=== PATIENT | female | born 1935 | race Caucasian/White ===

== ENCOUNTER 2016-08-11 09:33 | Emergency (ER) | payer MEDICARE, OTHER ==
[2016-08-11] MEDS ORDERED: SODIUM CHLORIDE 0.9% 1,000 ML IV ONE ×2 (09:56)
== END 2016-08-11 14:03 | disposition home or self-care (01) ==
DX: E86.0 Dehydration (principal); N30.00 Acute cystitis without hematuria; K57.30 Diverticulosis of large intestine without perforation or abscess without bleeding; R19.7 Diarrhea, unspecified; K43.9 Ventral hernia without obstruction or gangrene; I25.10 Atherosclerotic heart disease of native coronary artery without angina pectoris; E03.9 Hypothyroidism, unspecified; Z85.72 Personal history of non-Hodgkin lymphomas; Z79.01 Long term (current) use of anticoagulants

== ENCOUNTER 2018-03-24 08:57 | Outpatient (CLI) | payer MEDICARE, OTHER ==
[2018-03-24 09:16] LABS: INR 1.7 (0.8-1.2); PT - PROTHROMBIN TIME 18.3 secs (9.9-12.6)
== END 2018-03-24 08:58 | disposition home or self-care (01) ==
LOC: LAB 08:57
PROVIDERS: ATTEND Pharmacist
DX: I48.91 Unspecified atrial fibrillation (principal); D68.51 Activated protein C resistance
CPT/HCPCS: 36415; 85610

== ENCOUNTER 2018-03-31 08:52 | Outpatient (CLI) | payer MEDICARE, OTHER ==
[2018-03-31 09:20] LABS: INR 3.7 (0.8-1.2); PT - PROTHROMBIN TIME 39.6 secs (9.9-12.6)
== END 2018-03-31 08:53 | disposition home or self-care (01) ==
LOC: LAB 08:52
PROVIDERS: ATTEND Pharmacist
DX: I48.91 Unspecified atrial fibrillation (principal); D68.51 Activated protein C resistance
CPT/HCPCS: 36415; 85610

== ENCOUNTER 2018-04-07 08:50 | Outpatient (CLI) | payer MEDICARE, OTHER ==
[2018-04-07 10:30] LABS: INR 4.4 (0.8-1.2); PT - PROTHROMBIN TIME 47.3 secs (9.9-12.6)
== END 2018-04-07 08:51 | disposition home or self-care (01) ==
LOC: LAB 08:50
PROVIDERS: ATTEND Pharmacist
DX: I48.91 Unspecified atrial fibrillation (principal); D68.51 Activated protein C resistance
CPT/HCPCS: 36415; 85610

== ENCOUNTER 2018-04-14 08:10 | Outpatient (CLI) | payer MEDICARE, OTHER ==
[2018-04-14 08:38] LABS: INR 3.7 (0.8-1.2)
== END 2018-04-14 08:11 | disposition home or self-care (01) ==
LOC: LAB 08:10
PROVIDERS: ATTEND Pharmacist
DX: I48.91 Unspecified atrial fibrillation (principal); D68.51 Activated protein C resistance
CPT/HCPCS: 36415; 85610

== ENCOUNTER 2018-04-25 08:44 | Outpatient (CLI) | payer MEDICARE, OTHER ==
[2018-04-25 09:37] LABS: INR 2.5 (0.8-1.2); PT - PROTHROMBIN TIME 27.2 secs (9.9-12.6)
== END 2018-04-25 08:45 | disposition home or self-care (01) ==
LOC: LAB 08:44
PROVIDERS: ATTEND Pharmacist
DX: I48.91 Unspecified atrial fibrillation (principal); D68.51 Activated protein C resistance
CPT/HCPCS: 36415; 85610

== ENCOUNTER 2018-05-18 08:46 | Outpatient (CLI) | payer MEDICARE, OTHER ==
[2018-05-18 09:26] LABS: INR 1.6 (0.8-1.2); PT - PROTHROMBIN TIME 17.4 secs (9.9-12.6)
== END 2018-05-18 08:47 | disposition home or self-care (01) ==
LOC: LAB 08:46
PROVIDERS: ATTEND Pharmacist
DX: I48.91 Unspecified atrial fibrillation (principal); D68.51 Activated protein C resistance
CPT/HCPCS: 36415; 85610

== ENCOUNTER 2018-05-25 08:45 | Outpatient (CLI) | payer MEDICARE, OTHER ==
[2018-05-25 09:11] LABS: PT - PROTHROMBIN TIME 22.6 secs (9.9-12.6)
== END 2018-05-25 08:46 | disposition home or self-care (01) ==
LOC: LAB 08:45
PROVIDERS: ATTEND Pharmacist
DX: I48.91 Unspecified atrial fibrillation (principal); D68.51 Activated protein C resistance
CPT/HCPCS: 36415; 85610

== ENCOUNTER 2018-06-08 08:12 | Outpatient (CLI) | payer MEDICARE, OTHER ==
[2018-06-08 09:09] LABS: INR 2.7 (0.8-1.2); PT - PROTHROMBIN TIME 30.4 secs (9.9-12.6)
== END 2018-06-08 08:13 | disposition home or self-care (01) ==
LOC: LAB 08:12
PROVIDERS: ATTEND Pharmacist
DX: I48.91 Unspecified atrial fibrillation (principal); D68.51 Activated protein C resistance
CPT/HCPCS: 36415; 85610

== ENCOUNTER 2018-07-11 09:51 | Outpatient (CLI) | payer MEDICARE, OTHER ==
[2018-07-11 10:49] LABS: PT - PROTHROMBIN TIME 22.3 secs (9.9-12.6)
== END 2018-07-11 09:52 | disposition home or self-care (01) ==
LOC: LAB 09:51
PROVIDERS: ATTEND Pharmacist
DX: I48.91 Unspecified atrial fibrillation (principal); D68.51 Activated protein C resistance
CPT/HCPCS: 36415; 85610

== ENCOUNTER 2018-08-10 09:00 | Outpatient (CLI) | payer MEDICARE, OTHER ==
[2018-08-10 09:24] LABS: INR 2.2 (0.8-1.2); PT - PROTHROMBIN TIME 23.9 secs (9.9-12.6)
== END 2018-08-10 09:01 | disposition home or self-care (01) ==
LOC: LAB 09:00
PROVIDERS: ATTEND Pharmacist
DX: I48.91 Unspecified atrial fibrillation (principal); D68.51 Activated protein C resistance
CPT/HCPCS: 36415; 85610

== ENCOUNTER 2018-09-19 08:06 | Outpatient (CLI) | payer MEDICARE, OTHER ==
[2018-09-19 08:28] LABS: INR 1.8 (0.8-1.2); PT - PROTHROMBIN TIME 20.1 secs (9.9-12.6)
== END 2018-09-19 08:07 | disposition home or self-care (01) ==
LOC: LAB 08:06
PROVIDERS: ATTEND Pharmacist
DX: I48.91 Unspecified atrial fibrillation (principal); D68.51 Activated protein C resistance
CPT/HCPCS: 36415; 85610

== ENCOUNTER 2018-10-17 08:51 | Outpatient (CLI) | payer MEDICARE, OTHER ==
[2018-10-17 09:22] LABS: BASOPHILS # (AUTO) 0.1 10^3/uL (0.0-0.1); BASOPHILS % (AUTO) 1.1 %; EOSINOPHILS # (AUTO) 0.7 10^3/uL (0.0-0.7); EOSINOPHILS % (AUTO) 8.4 %; HGB - HEMOGLOBIN 11.9 g/dL (12.0-16.0); MEAN CORPUSCULAR HEMOGLOBIN 28.7 pg (27.0-31.0); MEAN CORPUSCULAR HGB CONC 32.1 g/dL (32.0-36.0); MEAN CORPUSCULAR VOLUME 89.3 fL (81.0-99.0); MEAN PLATELET VOLUME 8.2 fL (7.9-10.8); MONOCYTES % (AUTO) 11.9 %; NEUTROPHILS # (AUTO) 3.4 10^3/uL (1.5-6.6); NEUTROPHILS % (AUTO) 41.6 %; PLT - PLATELET COUNT 236 10^3/uL (130-450); RED BLOOD COUNT 4.15 10^6/uL (4.20-5.40); RED CELL DISTRIBUTION WIDTH 15.6 % (12.0-15.0); WHITE BLOOD COUNT 8.1 x10^3/uL (4.8-10.8)
[2018-10-17 09:40] LABS: ALBUMIN/GLOBULIN RATIO 1.1 (1.0-2.2); ALKALINE PHOSPHATASE 43 IU/L (42-121); ALT ALANINE AMINOTRANSFERASE 15 IU/L (10-60); AST ASPARTATE AMINOTRANSFERASE 24 IU/L (10-42); BILIRUBIN,TOTAL 0.8 mg/dL (0.2-1.0); BUN - BLOOD UREA NITROGEN 18 mg/dL (6-20); CALCIUM 8.9 mg/dL (8.5-10.3); CARBON DIOXIDE - CO2 26 mmol/L (21-32); CHLORIDE 103 mmol/L (101-111); CHOL/HDL RATIO 2.4 (<4.4); CHOLESTEROL 160 mg/dL; CREATININE 0.7 mg/dL (0.4-1.0); GFR - MDRD 80 (>89); GLUCOSE 101 mg/dL (70-100); HDL CHOLESTEROL 66 mg/dL; LDL CHOLESTEROL,CALCULATED 71 mg/dL; LDL/HDL RATIO 1.1 (<4.4); SODIUM 136 mmol/L (135-145); TOTAL PROTEIN 7.6 g/dL (6.7-8.2); VLDL CHOLESTEROL 23 mg/dL
[2018-10-17 09:44] LABS: INR 2.2 (0.8-1.2); PT - PROTHROMBIN TIME 24.4 secs (9.9-12.6)
[2018-10-17 10:08] LABS: THYROID STIMULATING HORMONE 2.93 uIU/mL (0.34-5.60)
== END 2018-10-17 08:52 | disposition home or self-care (01) ==
LOC: LAB 08:51
PROVIDERS: ATTEND Pharmacist
DX: I48.91 Unspecified atrial fibrillation (principal); E78.5 Hyperlipidemia, unspecified; D68.51 Activated protein C resistance; I42.9 Cardiomyopathy, unspecified; E53.8 Deficiency of other specified B group vitamins; E03.9 Hypothyroidism, unspecified; Z79.01 Long term (current) use of anticoagulants
CPT/HCPCS: 36415; 80053; 80061; 82607; 83721; 84443; 85025; 85610

== ENCOUNTER 2018-11-11 08:00 | Outpatient (CLI) | payer MEDICARE, OTHER | END 2018-11-11 23:59 | disposition home or self-care (01) | LOC: LAB.R 08:00 | PROVIDERS: ATTEND Nurse Practitioner | DX: R30.0 Dysuria (principal) | CPT/HCPCS: 87077; 87086; 87181 ==

== ENCOUNTER 2018-11-21 08:41 | Outpatient (CLI) | payer MEDICARE, OTHER ==
[2018-11-21 09:04] LABS: INR 3.3 (0.8-1.2); PT - PROTHROMBIN TIME 36.9 secs (9.9-12.6)
== END 2018-11-21 08:42 | disposition home or self-care (01) ==
LOC: LAB 08:41
PROVIDERS: ATTEND Pharmacist
DX: I48.91 Unspecified atrial fibrillation (principal); D68.51 Activated protein C resistance
CPT/HCPCS: 36415; 85610

== ENCOUNTER 2018-12-13 10:44 | Outpatient (CLI) | payer MEDICARE, OTHER ==
[2018-12-13 09:21] LABS: INR 2.2 (0.8-1.2); PT - PROTHROMBIN TIME 24.9 secs (9.9-12.6)
== END 2018-12-13 10:45 | disposition home or self-care (01) ==
LOC: LAB 10:44
PROVIDERS: ATTEND Pharmacist
DX: I48.91 Unspecified atrial fibrillation (principal); D68.51 Activated protein C resistance
CPT/HCPCS: 36415; 85610

== ENCOUNTER 2019-01-09 08:00 | Outpatient (CLI) | payer MEDICARE, OTHER ==
[2019-01-09 09:32] LABS: INR 1.5 (0.8-1.2); PT - PROTHROMBIN TIME 16.4 secs (9.9-12.6)
== END 2019-01-09 23:59 | disposition home or self-care (01) ==
LOC: LAB 08:00
PROVIDERS: ATTEND Pharmacist
DX: I48.91 Unspecified atrial fibrillation (principal); D68.51 Activated protein C resistance
CPT/HCPCS: 36415; 85610

== ENCOUNTER 2019-01-27 08:52 | Outpatient (CLI) | payer MEDICARE, OTHER ==
[2019-01-27 09:34] LABS: INR 5.3 (0.8-1.2)
== END 2019-01-27 08:53 | disposition home or self-care (01) ==
LOC: LAB 08:52
PROVIDERS: ATTEND Pharmacist
DX: I48.91 Unspecified atrial fibrillation (principal); D68.51 Activated protein C resistance
CPT/HCPCS: 85610

== ENCOUNTER 2019-01-31 08:42 | Outpatient (CLI) | payer MEDICARE, OTHER ==
[2019-01-31 09:52] LABS: INR 2.7 (0.8-1.2); PT - PROTHROMBIN TIME 30.1 secs (9.9-12.6)
== END 2019-01-31 08:43 | disposition home or self-care (01) ==
LOC: LAB 08:42
PROVIDERS: ATTEND Pharmacist
DX: I48.91 Unspecified atrial fibrillation (principal); D68.51 Activated protein C resistance
CPT/HCPCS: 36415; 85610

== ENCOUNTER 2019-02-14 08:35 | Outpatient (CLI) | payer MEDICARE, OTHER ==
[2019-02-14 09:22] LABS: INR 3.1 (0.8-1.2); PT - PROTHROMBIN TIME 33.8 secs (9.9-12.6)
== END 2019-02-14 08:36 | disposition home or self-care (01) ==
LOC: LAB 08:35
PROVIDERS: ATTEND Pharmacist
DX: I48.91 Unspecified atrial fibrillation (principal); D68.51 Activated protein C resistance
CPT/HCPCS: 36415; 85610

== ENCOUNTER 2019-02-28 08:12 | Outpatient (CLI) | payer MEDICARE, OTHER ==
[2019-02-28 08:45] LABS: INR 2.6 (0.8-1.2); PT - PROTHROMBIN TIME 28.7 secs (9.9-12.6)
== END 2019-02-28 08:13 | disposition home or self-care (01) ==
LOC: LAB 08:12
PROVIDERS: ATTEND Pharmacist
DX: I48.91 Unspecified atrial fibrillation (principal); D68.51 Activated protein C resistance
CPT/HCPCS: 36415; 85610

== ENCOUNTER 2019-03-27 08:21 | Outpatient (CLI) | payer MEDICARE, OTHER ==
[2019-03-27 08:52] LABS: INR 2.8 (0.8-1.2); PT - PROTHROMBIN TIME 31.2 secs (9.9-12.6)
== END 2019-03-27 08:22 | disposition home or self-care (01) ==
LOC: LAB 08:21
PROVIDERS: ATTEND Pharmacist
DX: I48.91 Unspecified atrial fibrillation (principal); D68.51 Activated protein C resistance
CPT/HCPCS: 36415; 85610

== ENCOUNTER 2019-04-25 08:03 | Outpatient (CLI) | payer MEDICARE, OTHER ==
[2019-04-25 08:54] LABS: INR 2.4 (0.8-1.2); PT - PROTHROMBIN TIME 26.4 secs (9.9-12.6)
== END 2019-04-25 08:04 | disposition home or self-care (01) ==
LOC: LAB 08:03
PROVIDERS: ATTEND Pharmacist
DX: I48.91 Unspecified atrial fibrillation (principal); D68.51 Activated protein C resistance
CPT/HCPCS: 36415; 85610

== ENCOUNTER 2019-05-12 08:24 | Outpatient (CLI) | payer MEDICARE, OTHER ==
[2019-05-12 08:53] LABS: BASOPHILS # (AUTO) 0.1 10^3/uL (0.0-0.1); EOSINOPHILS # (AUTO) 0.8 10^3/uL (0.0-0.7); EOSINOPHILS % (AUTO) 11.4 %; HGB - HEMOGLOBIN 12.5 g/dL (12.0-16.0); LYMPHOCYTES # (AUTO) 2.3 10^3/uL (1.5-3.5); LYMPHOCYTES % (AUTO) 32.8 %; MEAN CORPUSCULAR HEMOGLOBIN 28.7 pg (27.0-31.0); MEAN CORPUSCULAR HGB CONC 30.4 g/dL (32.0-36.0); MEAN CORPUSCULAR VOLUME 94.3 fL (81.0-99.0); MEAN PLATELET VOLUME 10.4 fL (7.9-10.8); MONOCYTES # (AUTO) 0.8 10^3/uL (0.0-1.0); MONOCYTES % (AUTO) 12.1 %; NEUTROPHILS % (AUTO) 42.6 %; PLT - PLATELET COUNT 230 10^3/uL (130-450); RED BLOOD COUNT 4.36 10^6/uL (4.20-5.40); RED CELL DISTRIBUTION WIDTH 15.4 % (12.0-15.0)
[2019-05-12 09:12] LABS: ALBUMIN 4.2 g/dL (3.2-5.5); ALBUMIN/GLOBULIN RATIO 1.2 (1.0-2.2); ALKALINE PHOSPHATASE 42 IU/L (42-121); ALT ALANINE AMINOTRANSFERASE 15 IU/L (10-60); AST ASPARTATE AMINOTRANSFERASE 22 IU/L (10-42); BUN - BLOOD UREA NITROGEN 15 mg/dL (6-20); CALCIUM 9.5 mg/dL (8.5-10.3); CARBON DIOXIDE - CO2 28 mmol/L (21-32); CHLORIDE 103 mmol/L (101-111); CHOL/HDL RATIO 2.4 (<4.4); CHOLESTEROL 154 mg/dL; CREATININE 0.7 mg/dL (0.4-1.0); GFR - MDRD 80 (>89); GLUCOSE 110 mg/dL (70-100); HDL CHOLESTEROL 63 mg/dL; LDL CHOLESTEROL,CALCULATED 70 mg/dL; LDL/HDL RATIO 1.1 (<4.4); SODIUM 141 mmol/L (135-145); TOTAL PROTEIN 7.8 g/dL (6.7-8.2); VLDL CHOLESTEROL 21 mg/dL
== END 2019-05-12 08:25 | disposition home or self-care (01) ==
LOC: LAB 08:24
PROVIDERS: ATTEND Physician Assistant Medical
DX: I48.91 Unspecified atrial fibrillation (principal); E78.5 Hyperlipidemia, unspecified; E53.8 Deficiency of other specified B group vitamins; E03.9 Hypothyroidism, unspecified
CPT/HCPCS: 36415; 80053; 80061; 82607; 83721; 84443; 85025

== ENCOUNTER 2019-05-22 08:45 | Outpatient (CLI) | payer MEDICARE, OTHER ==
[2019-05-22 09:22] LABS: INR 2.9 (0.8-1.2); PT - PROTHROMBIN TIME 30.8 secs (9.9-12.6)
== END 2019-05-22 08:46 | disposition home or self-care (01) ==
LOC: LAB 08:45
PROVIDERS: ATTEND Pharmacist
DX: I48.91 Unspecified atrial fibrillation (principal); D68.51 Activated protein C resistance
CPT/HCPCS: 36415; 85610

== ENCOUNTER 2019-06-21 08:50 | Outpatient (CLI) | payer MEDICARE, OTHER ==
[2019-06-21 09:48] LABS: INR 1.6 (0.8-1.2); PT - PROTHROMBIN TIME 17.7 secs (9.9-12.6)
== END 2019-06-21 08:51 | disposition home or self-care (01) ==
LOC: LAB 08:50
PROVIDERS: ATTEND Physician Assistant Medical
DX: I48.91 Unspecified atrial fibrillation (principal)
CPT/HCPCS: 36415; 85610

== ENCOUNTER 2019-07-07 09:24 | Outpatient (CLI) | payer MEDICARE, OTHER ==
[2019-07-07 09:58] LABS: INR 3.7 (0.8-1.2); PT - PROTHROMBIN TIME 38.8 secs (9.9-12.6)
== END 2019-07-07 09:25 | disposition home or self-care (01) ==
LOC: LAB 09:24
PROVIDERS: ATTEND Physician Assistant Medical
DX: I48.91 Unspecified atrial fibrillation (principal)
CPT/HCPCS: 36415; 85610

== ENCOUNTER 2019-07-14 08:21 | Outpatient (CLI) | payer MEDICARE, OTHER ==
[2019-07-14 10:14] LABS: INR 3.6 (0.8-1.2); PT - PROTHROMBIN TIME 38.2 secs (9.9-12.6)
== END 2019-07-14 08:22 | disposition home or self-care (01) ==
LOC: LAB 08:21
PROVIDERS: ATTEND Pharmacist
DX: I48.91 Unspecified atrial fibrillation (principal); D68.51 Activated protein C resistance
CPT/HCPCS: 36415; 85610

== ENCOUNTER 2019-08-08 09:08 | Outpatient (CLI) | payer MEDICARE, OTHER ==
[2019-08-08 11:49] LABS: PT - PROTHROMBIN TIME 32.6 secs (9.9-12.6)
== END 2019-08-08 09:09 | disposition home or self-care (01) ==
LOC: LAB 09:08
PROVIDERS: ATTEND Pharmacist
DX: I48.91 Unspecified atrial fibrillation (principal); D68.51 Activated protein C resistance
CPT/HCPCS: 36415; 85610

== ENCOUNTER 2019-10-06 07:29 | Outpatient (CLI) | payer MEDICARE, OTHER ==
[2019-10-06 07:57] LABS: INR 1.6 (0.8-1.2); PT - PROTHROMBIN TIME 17.5 secs (9.9-12.6)
== END 2019-10-06 07:30 | disposition home or self-care (01) ==
LOC: LAB 07:29
PROVIDERS: ATTEND Pharmacist
DX: I48.91 Unspecified atrial fibrillation (principal); D68.51 Activated protein C resistance
CPT/HCPCS: 36415; 85610

== ENCOUNTER 2020-12-11 07:12 | Outpatient (CLI) | payer MEDICARE, OTHER ==
[2020-12-11 07:40] LABS: BASOPHILS # (AUTO) 0.1 10^3/uL (0.0-0.1); EOSINOPHILS # (AUTO) 0.8 10^3/uL (0.0-0.7); EOSINOPHILS % (AUTO) 8.6 %; HCT - HEMATOCRIT 37.1 % (37.0-47.0); HGB - HEMOGLOBIN 11.7 g/dL (12.0-16.0); LYMPHOCYTES # (AUTO) 3.2 10^3/uL (1.5-3.5); LYMPHOCYTES % (AUTO) 35.6 %; MEAN CORPUSCULAR HEMOGLOBIN 29.1 pg (27.0-31.0); MEAN CORPUSCULAR HGB CONC 31.5 g/dL (32.0-36.0); MEAN CORPUSCULAR VOLUME 92.3 fL (81.0-99.0); MEAN PLATELET VOLUME 10.1 fL (7.9-10.8); MONOCYTES # (AUTO) 0.9 10^3/uL (0.0-1.0); MONOCYTES % (AUTO) 10.4 %; NEUTROPHILS % (AUTO) 44.2 %; PLT - PLATELET COUNT 268 10^3/uL (130-450); RED BLOOD COUNT 4.02 10^6/uL (4.20-5.40); RED CELL DISTRIBUTION WIDTH 15.3 % (12.0-15.0)
[2020-12-11 07:53] LABS: BILIRUBIN,URINE NEGATIVE (NEGATIVE); GLUCOSE, URINE (UA) NEGATIVE (NEGATIVE); KETONES,URINE (UA) NEGATIVE (NEGATIVE); NITRITE,URINE NEGATIVE (NEGATIVE); OCCULT BLOOD,URINE SMALL (NEGATIVE); PROTEIN,URINE NEGATIVE (NEGATIVE); UROBILINOGEN,URINE 0.2 (NORMAL) E.U./dL (NORMAL)
[2020-12-11 07:54] LABS: BACTERIA,URINE Few /HPF (None Seen); CLARITY,URINE CLEAR (CLEAR); LEUKOCYTE ESTERASE, URINE MODERATE (NEGATIVE); RBC,URINE 0-5 /HPF (0-5); SQUAMOUS EPITHELIAL CELL,UR FEW Squamous (<= Few)
[2020-12-11 08:02] LABS: ALBUMIN 4.5 g/dL (3.2-5.5); ALBUMIN/GLOBULIN RATIO 1.4 (1.0-2.2); ALKALINE PHOSPHATASE 48 IU/L (42-121); ALT ALANINE AMINOTRANSFERASE 12 IU/L (10-60); AST ASPARTATE AMINOTRANSFERASE 20 IU/L (10-42); BILIRUBIN,TOTAL 0.9 mg/dL (0.2-1.0); BUN - BLOOD UREA NITROGEN 15 mg/dL (6-20); CALCIUM 9.8 mg/dL (8.5-10.3); CARBON DIOXIDE - CO2 28 mmol/L (21-32); CHLORIDE 103 mmol/L (101-111); CHOL/HDL RATIO 2.5 (<4.4); CHOLESTEROL 171 mg/dL; CREATININE 0.7 mg/dL (0.4-1.0); GFR - MDRD 80 (>89); GLUCOSE 111 mg/dL (70-100); HDL CHOLESTEROL 68 mg/dL; LDL CHOLESTEROL,CALCULATED 85 mg/dL; LDL/HDL RATIO 1.3 (<4.4); POTASSIUM 3.8 mmol/L (3.5-5.0); SODIUM 141 mmol/L (135-145); TOTAL PROTEIN 7.8 g/dL (6.7-8.2); TRIGLYCERIDES 91 mg/dL; VLDL CHOLESTEROL 18 mg/dL
[2020-12-11 08:11] LABS: THYROID STIMULATING HORMONE 24.73 uIU/mL (0.34-5.60)
[2020-12-11 09:09] LABS: FREE T4 (FREE THYROXINE) 0.72 ng/dL (0.58-1.64)
== END 2020-12-11 07:13 | disposition home or self-care (01) ==
LOC: LAB 07:12
PROVIDERS: ATTEND Physician Assistant Medical
DX: E78.5 Hyperlipidemia, unspecified (principal); E53.8 Deficiency of other specified B group vitamins; E03.9 Hypothyroidism, unspecified; I48.91 Unspecified atrial fibrillation; N93.9 Abnormal uterine and vaginal bleeding, unspecified; R30.9 Painful micturition, unspecified
CPT/HCPCS: 36415; 80053; 80061; 81001; 82607; 83721; 84439; 84443; 85025; 87086

== ENCOUNTER 2021-01-02 08:00 | Outpatient (CLI) | payer MEDICARE, OTHER ==
[2021-01-02 19:58] LABS: BACTERIAL VAGINOSIS DNA NEGATIVE (NEGATIVE); CANDIDA GLABRATA DNA NEGATIVE (NEGATIVE); CANDIDA GROUP DNA NEGATIVE (NEGATIVE); CANDIDA KRUSEI DNA NEGATIVE (NEGATIVE); TRICHOMONAS VAGINALIS DNA NEGATIVE (NEGATIVE)
== END 2021-01-02 23:59 | disposition home or self-care (01) ==
LOC: LAB.WCP 08:00
PROVIDERS: ATTEND Physician Assistant Medical
DX: N76.0 Acute vaginitis (principal)
CPT/HCPCS: 87070; 87077; 87181; 87661; 87801

== ENCOUNTER 2021-01-31 12:12 | Outpatient (CLI) | payer MEDICARE, OTHER ==
[2021-01-31 18:21] LABS: THYROID STIMULATING HORMONE 3.35 uIU/mL (0.34-5.60)
== END 2021-01-31 23:59 | disposition home or self-care (01) ==
LOC: LAB.WCP 12:12
PROVIDERS: ATTEND Physician Assistant Medical
DX: E03.9 Hypothyroidism, unspecified (principal); N76.0 Acute vaginitis
CPT/HCPCS: 36415; 84443; 87070; 87077; 87181

== ENCOUNTER 2021-02-04 19:31 | Outpatient (CLI) | payer MEDICARE, OTHER ==
--- NOTE | 2021-02-05 10:36 | Ultrasound Report ---
PROCEDURE: Pelvic w/Transvaginal INDICATIONS: VAGINITIS TECHNIQUE: Real-time scanning was performed of the pelvic organs, with image documentation. Additional endovagi nal scanning was necessary due to incomplete visualization of the adnexal and endometrial structures by transabdominal scanning. COMPARISON: None. FINDINGS: No pathologic free abdominal or pelvic fluid. Uterus: Surgically absent. Mild increased vascularity in the vaginal canal. Ovaries: Surgically absent IMPRESSION: 1. Postsurgical sequelae. 2. Mild vascularity within the vaginal canal, consistent with the given history of vaginitis. Reviewed by: Cheryl Boone MD on 02/05/2021 10:35 AM PDT Approved by: Cheryl Boone MD on 02/05/2021 10:35 AM PDT Station ID: [id number]
== END 2021-02-04 19:32 | disposition home or self-care (01) ==
LOC: DI 19:31
PROVIDERS: ATTEND Physician Assistant Medical
DX: N76.0 Acute vaginitis (principal)

== ENCOUNTER 2021-09-18 08:35 | Outpatient (CLI) | payer MEDICARE, OTHER ==
[2021-09-18 08:56] LABS: BASOPHILS # (AUTO) 0.1 10^3/uL (0.0-0.1); EOSINOPHILS # (AUTO) 0.9 10^3/uL (0.0-0.7); EOSINOPHILS % (AUTO) 9.6 %; HCT - HEMATOCRIT 38.6 % (37.0-47.0); HGB - HEMOGLOBIN 12.3 g/dL (12.0-16.0); LYMPHOCYTES # (AUTO) 3.4 10^3/uL (1.5-3.5); LYMPHOCYTES % (AUTO) 37.6 %; MEAN CORPUSCULAR HEMOGLOBIN 31.2 pg (27.0-31.0); MEAN CORPUSCULAR HGB CONC 31.9 g/dL (32.0-36.0); MEAN PLATELET VOLUME 9.8 fL (7.9-10.8); MONOCYTES # (AUTO) 1.2 10^3/uL (0.0-1.0); NEUTROPHILS # (AUTO) 3.4 10^3/uL (1.5-6.6); NEUTROPHILS % (AUTO) 38.7 %; PLT - PLATELET COUNT 247 10^3/uL (130-450); RED BLOOD COUNT 3.94 10^6/uL (4.20-5.40); WHITE BLOOD COUNT 8.9 x10^3/uL (4.8-10.8)
[2021-09-18 09:25] LABS: ALBUMIN 4.1 g/dL (3.2-5.5); ALBUMIN/GLOBULIN RATIO 1.1 (1.0-2.2); ALKALINE PHOSPHATASE 38 IU/L (42-121); ALT ALANINE AMINOTRANSFERASE 15 IU/L (10-60); AST ASPARTATE AMINOTRANSFERASE 20 IU/L (10-42); BILIRUBIN,TOTAL 0.9 mg/dL (0.2-1.0); BUN - BLOOD UREA NITROGEN 18 mg/dL (6-20); CALCIUM 9.7 mg/dL (8.5-10.3); CARBON DIOXIDE - CO2 27 mmol/L (21-32); CHLORIDE 102 mmol/L (101-111); CHOL/HDL RATIO 2.5 (<4.4); CHOLESTEROL 142 mg/dL; CREATININE 0.7 mg/dL (0.4-1.0); GFR - MDRD 80 (>89); GLUCOSE 102 mg/dL (70-100); HDL CHOLESTEROL 57 mg/dL; LDL CHOLESTEROL,CALCULATED 68 mg/dL; LDL/HDL RATIO 1.2 (<4.4); SODIUM 139 mmol/L (135-145); TOTAL PROTEIN 7.7 g/dL (6.7-8.2); TRIGLYCERIDES 87 mg/dL; VLDL CHOLESTEROL 17 mg/dL
[2021-09-18 09:26] LABS: THYROID STIMULATING HORMONE 0.27 uIU/mL (0.34-5.60)
[2021-09-18 10:17] LABS: FREE T4 (FREE THYROXINE) 1.21 ng/dL (0.58-1.64)
== END 2021-09-18 08:36 | disposition home or self-care (01) ==
LOC: LAB 08:35
PROVIDERS: ATTEND Physician Assistant Medical
DX: K52.9 Noninfective gastroenteritis and colitis, unspecified (principal); E53.8 Deficiency of other specified B group vitamins; I48.91 Unspecified atrial fibrillation; E78.5 Hyperlipidemia, unspecified; E03.9 Hypothyroidism, unspecified; T45.2X5A Adverse effect of vitamins, initial encounter
CPT/HCPCS: 36415; 80053; 80061; 82306; 82607; 83721; 84439; 84443; 85025

== ENCOUNTER 2022-04-18 15:00 | Outpatient (CLI) | payer MEDICARE, OTHER | END 2022-04-18 15:01 | disposition left against medical advice (07) | LOC: EMS 15:00 | DX: R21 Rash and other nonspecific skin eruption (principal); R53.1 Weakness; R63.0 Anorexia ==

== ENCOUNTER 2022-04-20 07:11 | Outpatient (CLI) | payer MEDICARE, OTHER | END 2022-04-20 07:12 | disposition critical access hospital (66) | LOC: EMS 07:11 | DX: R07.89 Other chest pain (principal); B02.9 Zoster without complications; R53.83 Other fatigue | CPT/HCPCS: A0425; A0429 ==

== ENCOUNTER 2022-04-20 07:23 | Emergency (ER) | payer MEDICARE, OTHER ==
--- NOTE | 2022-04-20 07:32 | ED Physician Documentation ---
History of Present Illness - Stated complaint Stated Complaint: shingles - Chief complaint Chief Complaint: Wound - Additonal information Additional information: Patient is 87-year-old female presenting to the emergency department with chief complaint of shingles rash and feeling generally unwell. Reports decreased energy at home. States rash began over the left-sided chest wall 5 days ago. Was seen at [facility] emergency department and started on acyclovir yesterday. Presents to the emergency department feeling unwell with associated pain from her rash. Denies taking any medications for pain. Reports a possible low-grade fever yesterday but denies any headache, blurred vision, neck stiffness. Primarily reports that she feels tired and "out of it". States has not been sleeping well because of her rash. Review of Systems Ten Systems: 10 systems reviewed and negative Constitutional: denies: Chills Eyes: denies: Loss of vision Ears: denies: Loss of hearing Nose: denies: Rhinorrhea / runny nose Throat: denies: Dental pain / toothache Cardiac: denies: Chest pain / pressure Respiratory: denies: Dyspnea GI: denies: Abdominal Pain : denies: Dysuria Skin: reports: Rash PD PAST MEDICAL HISTORY - Past Medical History Cardiovascular: Coronary artery disease Respiratory: Asthma Endocrine/Autoimmune: HyPOthyroidism : Retention HEENT: None Musculoskeletal: Fatigue - Past Surgical History Past Surgical History: Yes General: Cholecystectomy, Appendectomy, 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: Hysterectomy Cardiovascular: Pacemaker - Present Medications Home Medications: Ambulatory Orders Medication Instructions Recorded Confirmed Albuterol Sulf [Ventolin Hfa 1 - 2 puffs INH Q4HR PRN 08/11/16 08/11/16 Inhaler] Azelastine HCl 137 mcg NS DAILY 08/11/16 08/11/16 Famotidine [Pepcid] 20 mg PO DAILY 08/11/16 08/11/16 Fluticasone/Salmeterol 500/50 1 puffs INH BID 08/11/16 08/11/16 [Advair 500 Mcg/50 Mcg] Levothyroxine Sodium [Synthroid] 100 mcg PO DAILY 08/11/16 08/11/16 Rosuvastatin [Crestor] 10 mg PO DAILY 08/11/16 08/11/16 Warfarin [Coumadin] 2.5 mg PO 1400 08/11/16 08/11/16 cephALEXin [Keflex] 500 mg PO Q6H 7 Days capsule 08/11/16 Gabapentin [Neurontin] 100 mg PO TID PRN #30 cap 04/20/22 Lidocaine Patch 5% [Lidoderm Patch] 1 patch TOP DAILY PRN #10 patch 04/20/22 Potassium Chloride [K-Dur] 20 meq PO DAILY #30 tablet 04/20/22 cephALEXin [Keflex] 500 mg PO Q6H #20 cap 04/20/22 - Allergies Allergies/Adverse Reactions: Allergies Allergy/AdvReac Type Severity Reaction Status Date / Time codeine [Codeine] Allergy Unknown unknown Unverified 12/27/12 09:04 ciprofloxacin [From Cipro] Allergy Unknown Verified 08/11/16 11:01 ciprofloxacin HCl * Allergy Unknown Verified 08/11/16 11:01 [From Cipro] cyanocobalamin (vitamin B12) Allergy Unknown Verified 08/11/16 11:01 iodine Allergy Unknown Verified 08/11/16 11:01 - Social History Does the pt smoke?: No Smoking Status: Never smoker PD ED PE NORMAL - Vitals Vital signs reviewed: Yes - General General: Alert and oriented X 3, No acute distress - HEENT HEENT: Atraumatic, PERRL - Neck Neck: Supple, no meningeal sign - Cardiac Cardiac: RRR - Respiratory Respiratory: No respiratory distress - Abdomen Abdomen: Normal bowel sounds, Soft - Female Female : Deferred - Rectal Rectal: Deferred - Derm Derm: Other (Multiple vesicular lesions noted in the left C4 dermatome. Lesions are not. States of healing. 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, No motor deficit - Psych Psych: Normal mood Results - Vitals Vitals: Vital Signs - 24 hr 04/20/22 04/20/22 07:25 07:44 Temperature 36.6 C Heart Rate 98 69 Respiratory 16 Rate Blood Pressure 185/90 H 183/70 H O2 Saturation 98 95 Oxygen O2 Source Room air - Labs Labs: Laboratory Tests 04/20/22 04/20/22 04/20/22 08:04 08:04 08:55 WBC 7.3 RBC 4.52 Hgb 13.5 Hct 40.9 MCV 90.5 MCH 29.9 MCHC 33.0 RDW 13.9 Plt Count 210 MPV 10.5 Neut # (Auto) 3.4 Lymph # (Auto) 2.4 [place] # (Auto) 1.4 H Eos # (Auto) 0.1 Baso # (Auto) 0.0 Absolute Nucleated RBC 0.00 Nucleated RBC % 0.0 Sodium 135 Potassium 3.0 L Chloride 97 L Carbon Dioxide 27 Anion Gap 11.0 BUN 15 Creatinine 0.7 Estimated GFR (MDRD) 79 L Glucose 113 H Calcium 9.7 Total Bilirubin 0.7 AST 30 ALT 19 Alkaline Phosphatase 46 Total Protein 7.4 Albumin 4.1 Globulin 3.3 Albumin/Globulin Ratio 1.2 Lipase 43 Urine Color LIGHT YELLOW Urine Clarity HAZY Urine pH 6.5 Ur Specific [place] <=1.005 Urine Protein NEGATIVE Urine Glucose (UA) NEGATIVE Urine Ketones NEGATIVE Urine Occult Blood MODERATE H Urine Nitrite NEGATIVE Urine Bilirubin NEGATIVE Urine Urobilinogen 0.2 (NORMAL) Ur Leukocyte Esterase MODERATE H Urine RBC 0-5 Urine WBC >25 H Urine WBC Clumps PRESENT Ur Squamous Epith Cells RARE Squamous Urine Bacteria Few Ur Microscopic Review INDICATED Urine Culture Comments INDICATED PD MEDICAL DECISION MAKING - ED course Complexity details: reviewed results, d/w patient ED course: Patient is 87-year-old female presenting to the emergency department after recent diagnosis of of shingles infection. Afebrile, hemodynamically stable on arrival to the emergency department. No focal or lateralizing neurologic deficits, nuchal rigidity that would be indicative of herpes encephalitis. Did have obvious vesicular rash primarily in the C4 dermatome. Departure - Departure Disposition: 01 Home, Self Care Clinical Impression: UTI (urinary tract infection), Shingles Instructions: ED UTI Cystitis Female, ED Shingles Prescriptions: Potassium Chloride [K-Dur] 20 meq PO DAILY #30 tablet cephALEXin [Keflex] 500 mg PO Q6H #20 cap Lidocaine Patch 5% [Lidoderm Patch] 1 patch TOP DAILY PRN #10 patch PRN Reason: pain Gabapentin [Neurontin] 100 mg PO TID PRN #30 cap PRN Reason: Mild Pain Comments: Thank you for allowing us to care for you today at [facility]. Today in the emergency department you were diagnosed with a recurrent shingles infection as well as a lower urinary tract infection. I want you to continue to take the acyclovir that was prescribed for you yesterday at [facility] emergency department. I will be prescribing you a course of antibiotics to help with your urinary tract infection. While on antibiotics I recommend increasing your intake and fiber full foods and natural probiotics. I will also be prescribing you a potassium supplement to take at home. I will also be prescribing you some Lidoderm patches and a medication known as gabapentin that can help with the Nerve pain associated with shingles. Please be aware that gabapentin does cause sedation. It is extremely important that you be cautious while on this medication as it can increase your risk for falls. Your family expressed concern about your safety at home. We discussed this matter and I know that at this time you are not interested in social work consultation or placement in either assisted living or fci care. I do want you to have a serious conversation however with your , appropriate family members and your primary care doctor as soon as possible in order to discuss your plans for the future. If it anytime you have any new or worsening symptoms please do not hesitate to return.
--- OUTSIDE RECORDS SUMMARY | 2022-04-20 07:39 | EXTERNAL MEDICAL SUMMARY RPT | Continuity of Care Document ---
:1935 Author Organization [facility] Address [address] [place] [address] Phone Allergies and Intolerances date description facility type (no date) [facility] (unknown) (no date) shellfish [facility] (unknown) Encounters No information. Functional Status No information. Immunizations No information. Medications No information. Problems No information. Procedures No information. Results/Labs test date author facility value unit interpret ation Result panel 1 (unknown) (no (unknown) (unknown) (no value) (units (unk nown) date) unknown) (unknown) (no (unknown) (unknown) 04/19/22 (units (unkno wn) date) unknown) (unknown) (no (unknown) (unknown) 1 g vaginal DAILY (units (unknown) date) Qty: 42.5 0RF unknown) (unknown) (no (unknown) (unknown) 10 mg PO DAILY (units (unknown) date) unknown) (unknown) (no (unknown) (unknown) 12.5 mg PO DAILY (units (unknown) date) unknown) (unknown) (no (unknown) (unknown) 125 mcg PO DAILY (units (unknown) date) unknown) (unknown) (no (unknown) (unknown) 17:08 (units (unkno wn) date) unknown) (unknown) (no (unknown) (unknown) 25 mg PO DAILY (units (unknown) date) unknown) (unknown) (no (unknown) (unknown) 5 mg PO BID (units (un known) date) unknown) (unknown) (no (unknown) (unknown) 80 mg PO DAILY (units (unknown) date) unknown) (unknown) (no (unknown) (unknown) 87-year-old female (units (unknown) date) who is here with unknown) family for evaluation of redness to the left (unknown) (no (unknown) (unknown) : [id number] (units (u nknown) date) unknown) (unknown) (no (unknown) (unknown) Age/Sex: 87 / F (units (unknown) date) unknown) (unknown) (no (unknown) (unknown) Allergies (units (unkn own) date) unknown) (unknown) (no (unknown) (unknown) Allergy/AdvReac Type (uni ts (unknown) date) Severity Reaction unknown) Status Date / Time (unknown) (no (unknown) (unknown) Anemia (units (unkno wn) date) unknown) (unknown) (no (unknown) (unknown) Anesthesia (units (unk nown) date) unknown) (unknown) (no (unknown) (unknown) Asthma (units (unkno wn) date) unknown) (unknown) (no (unknown) (unknown) Atrial fibrillation (unit s (unknown) date) () unknown) (unknown) (no (unknown) (unknown) Blood Pressure (units (unknown) date) 196/86 H 04/19/22 unknown) 17:08 (unknown) (no (unknown) (unknown) Blood Pressure (units (unknown) date) 196/86 H unknown) (unknown) (no (unknown) (unknown) Cataracts, bilateral (uni ts (unknown) date) () unknown) (unknown) (no (unknown) (unknown) Chicken pox (units (un known) date) unknown) (unknown) (no (unknown) (unknown) Chief complaint: (units (unknown) date) Skin/Abscess/Foreign unknown) Body (unknown) (no (unknown) (unknown) Chronic back pain (units (unknown) date) unknown) (unknown) (no (unknown) (unknown) Course (units (unkno wn) date) unknown) (unknown) (no (unknown) (unknown) : 1935 (units (unknown) date) Acct:[id number] unknown) (unknown) (no (unknown) (unknown) Date of Service: (units (unknown) date) 04/19/22 unknown) (unknown) (no (unknown) (unknown) Departure (units (unkn own) date) unknown) (unknown) (no (unknown) (unknown) Discharge Plan (units (unknown) date) unknown) (unknown) (no (unknown) (unknown) ER Physician: (units ( unknown) date) Lanker,Nicko D.O. unknown) (unknown) (no (unknown) (unknown) Eliquis 5 mg tablet (unit s (unknown) date) unknown) (unknown) (no (unknown) (unknown) Emergency Report (units (unknown) date) unknown) (unknown) (no (unknown) (unknown) Exam (units (unkno wn) date) unknown) (unknown) (no (unknown) (unknown) General (units (unkno wn) date) unknown) (unknown) (no (unknown) (unknown) H/O hysterectomy (units (unknown) date) with oophorectomy unknown) (unknown) (no (unknown) (unknown) HPI - (units (unkno wn) date) Skin/Abscess/Foreign unknown) Bdy (unknown) (no (unknown) (unknown) HPI narrative: (units (unknown) date) unknown) (unknown) (no (unknown) (unknown) Heavy menstrual (units (unknown) date) period unknown) (unknown) (no (unknown) (unknown) History of Present (units (unknown) date) Illness unknown) (unknown) (no (unknown) (unknown) History of (units (unk nown) date) appendectomy unknown) (unknown) (no (unknown) (unknown) History of (units (unk nown) date) cholecystectomy unknown) (unknown) (no (unknown) (unknown) History of surgery (units (unknown) date) unknown) (unknown) (no (unknown) (unknown) History of urinary (units (unknown) date) infection unknown) (unknown) (no (unknown) (unknown) Home Medications (units (unknown) date) unknown) (unknown) (no (unknown) (unknown) Hypertension (-2000) (uni ts (unknown) date) unknown) (unknown) (no (unknown) (unknown) Hypothyroidism (units (unknown) date) unknown) (unknown) (no (unknown) (unknown) Initial Vital Signs (unit s (unknown) date) unknown) (unknown) (no (unknown) (unknown) Initial Vital Signs: (uni ts (unknown) date) unknown) (unknown) (no (unknown) (unknown) [facility] [address] (uni ts (unknown) date) [address] unknown) [place] [address] (unknown) (no (unknown) (unknown) Limitations: no (units (unknown) date) limitations unknown) (unknown) (no (unknown) (unknown) 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) (units (unknown) date) unknown) (unknown) (no (unknown) (unknown) Macular degeneration (uni ts (unknown) date) (-2016) unknown) (unknown) (no (unknown) (unknown) Measles (units (unkno wn) date) unknown) (unknown) (no (unknown) (unknown) Medical History (units (unknown) date) (Updated 04/17/21 @ unknown) 12:49 by Marian Mcallister MD) (unknown) (no (unknown) (unknown) Medication (units (unk nown) date) Instructions Recorded unknown) Confirmed (unknown) (no (unknown) (unknown) Medication (units (unk nown) date) Instructions Recorded unknown) (unknown) (no (unknown) (unknown) Mode of arrival: (units (unknown) date) Ambulatory unknown) (unknown) (no (unknown) (unknown) NAUSEA (units (unkno wn) date) unknown) (unknown) (no (unknown) (unknown) No Action (units (unkn own) date) unknown) (unknown) (no (unknown) (unknown) Ovarian cyst (-1974) (uni ts (unknown) date) unknown) (unknown) (no (unknown) (unknown) Oxygen Delivery (units (unknown) date) Method 04/19/22 17:08 unknown) (unknown) (no (unknown) (unknown) Oxygen Delivery (units (unknown) date) Method Room Air unknown) (unknown) (no (unknown) (unknown) 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) (units (unknown) date) unknown) (unknown) (no (unknown) (unknown) Patient History (units (unknown) date) unknown) (unknown) (no (unknown) (unknown) Patient: (units (unkno wn) date) Kay Bernal T unknown) MR# (unknown) (no (unknown) (unknown) Prescriptions: (units (unknown) date) unknown) (unknown) (no (unknown) (unknown) Previous Rx's (units ( unknown) date) unknown) (unknown) (no (unknown) (unknown) Pulse Oximetry 99 (units (unknown) date) 04/19/22 17:08 unknown) (unknown) (no (unknown) (unknown) Pulse Oximetry 99 (units (unknown) date) unknown) (unknown) (no (unknown) (unknown) Pulse Rate 96 H (units (unknown) date) 04/19/22 17:08 unknown) (unknown) (no (unknown) (unknown) Pulse Rate 96 H (units (unknown) date) unknown) (unknown) (no (unknown) (unknown) Referrals: (units (unk nown) date) unknown) (unknown) (no (unknown) (unknown) Related Data (units (u nknown) date) unknown) (unknown) (no (unknown) (unknown) Respiratory Rate 16 (unit s (unknown) date) 04/19/22 17:08 unknown) (unknown) (no (unknown) (unknown) Respiratory Rate 16 (unit s (unknown) date) unknown) (unknown) (no (unknown) (unknown) Signed By: (units (unk nown) date) unknown) (unknown) (no (unknown) (unknown) Smoking Status: (units (unknown) date) Never smoker unknown) (unknown) (no (unknown) (unknown) Social History (units (unknown) date) unknown) (unknown) (no (unknown) (unknown) Source: patient and (unit s (unknown) date) family unknown) (unknown) (no (unknown) (unknown) Stated complaint: (units (unknown) date) neck/head/chest unknown) red/weepy/painful rash (unknown) (no (unknown) (unknown) Substance Use Type: (unit s (unknown) date) does not use unknown) (unknown) (no (unknown) (unknown) Surgical History (units (unknown) date) (Updated 04/16/21 @ unknown) 21:37 by Mariana Joyce) (unknown) (no (unknown) (unknown) Temperature 98.3 F (units (unknown) date) 04/19/22 17:08 unknown) (unknown) (no (unknown) (unknown) Temperature 98.3 F (units (unknown) date) unknown) (unknown) (no (unknown) (unknown) Time Seen by (units (u nknown) date) Provider: 04/19/22 unknown) 17:21 (unknown) (no (unknown) (unknown) Vital Signs - 8 hr (units (unknown) date) unknown) (unknown) (no (unknown) (unknown) Vital Signs (units (un known) date) unknown) (unknown) (no (unknown) (unknown) Vital signs: (units (u nknown) date) unknown) (unknown) (no (unknown) (unknown) Delia Louis PA-C (uni ts (unknown) date) [Primary Care unknown) Provider] (unknown) (no (unknown) (unknown) [SHELLFISH DERIVED] (unit s (unknown) date) VOMITING unknown) (unknown) (no (unknown) (unknown) apixaban 5 mg tablet (uni ts (unknown) date) (Eliquis) 5 mg PO BID unknown) 03/18/21 04/17/21 (unknown) (no (unknown) (unknown) codeine [CODEINE] (units (unknown) date) Allergy Intermediate unknown) HIVES, Unverified 11/10/17 12:24 (unknown) (no (unknown) (unknown) estradiol 0.01 % (units (unknown) date) (0.1 mg/gram) cream unknown) (unknown) (no (unknown) (unknown) estradiol 0.01% (0.1 (uni ts (unknown) date) mg/gram) 1 g vaginal unknown) DAILY Vaginal atrophy 03/18/21 (unknown) (no (unknown) (unknown) hydrochlorothiazide (unit s (unknown) date) 12.5 mg capsule 12.5 unknown) mg PO DAILY 03/18/21 04/17/21 (unknown) (no (unknown) (unknown) hydrochlorothiazide (unit s (unknown) date) 12.5 mg capsule unknown) (unknown) (no (unknown) (unknown) levothyroxine 125 (units (unknown) date) mcg capsule 125 mcg unknown) PO DAILY 03/18/21 04/17/21 (unknown) (no (unknown) (unknown) levothyroxine 125 (units (unknown) date) mcg capsule unknown) (unknown) (no (unknown) (unknown) metoprolol succinate (uni ts (unknown) date) 25 mg 25 mg PO DAILY unknown) 03/18/21 04/17/21 (unknown) (no (unknown) (unknown) metoprolol succinate (uni ts (unknown) date) 25 mg tablet extended unknown) release 24 hr (unknown) (no (unknown) (unknown) rosuvastatin 10 mg (units (unknown) date) tablet 10 mg PO DAILY unknown) 03/18/21 04/17/21 (unknown) (no (unknown) (unknown) rosuvastatin 10 mg (units (unknown) date) tablet unknown) (unknown) (no (unknown) (unknown) shellfish derived (units (unknown) date) Allergy Intermediate unknown) NAUSEA, Unverified 11/10/17 12:24 (unknown) (no (unknown) (unknown) side of her neck and (uni ts (unknown) date) chest and the back of unknown) her head. Patient states that it (unknown) (no (unknown) (unknown) started (units (unkno wn) date) unknown) (unknown) (no (unknown) (unknown) tablet,extended (units (unknown) date) release 24 hr unknown) (unknown) (no (unknown) (unknown) vaginal cream #42.5 (unit s (unknown) date) grams unknown) (unknown) (no (unknown) (unknown) valsartan 80 mg (units (unknown) date) tablet 80 mg PO DAILY unknown) 03/18/21 04/17/21 (unknown) (no (unknown) (unknown) valsartan 80 mg (units (unknown) date) tablet unknown) Result panel 2 (unknown) (no (unknown) (unknown) (no value) (units (unk nown) date) unknown) (unknown) (no (unknown) (unknown) <Electronically (units (unknown) date) signed by Nicko Patten D.O.> (unknown) (no (unknown) (unknown) 04/19/22 1743 (units ( unknown) date) unknown) (unknown) (no (unknown) (unknown) 04/19/22 (units (unkno wn) date) unknown) (unknown) (no (unknown) (unknown) 1 g vaginal DAILY (units (unknown) date) Qty: 42.5 0RF unknown) (unknown) (no (unknown) (unknown) 10 mg PO DAILY (units (unknown) date) unknown) (unknown) (no (unknown) (unknown) 12.5 mg PO DAILY (units (unknown) date) unknown) (unknown) (no (unknown) (unknown) 125 mcg PO DAILY (units (unknown) date) unknown) (unknown) (no (unknown) (unknown) 17:08 (units (unkno wn) date) unknown) (unknown) (no (unknown) (unknown) 25 mg PO DAILY (units (unknown) date) unknown) (unknown) (no (unknown) (unknown) 5 mg PO BID (units (un known) date) unknown) (unknown) (no (unknown) (unknown) 80 mg PO DAILY (units (unknown) date) unknown) (unknown) (no (unknown) (unknown) 800 mg PO QID 10 (units (unknown) date) Days Qty: 40 0RF unknown) (unknown) (no (unknown) (unknown) 87-year-old female (units (unknown) date) who is here with unknown) family for evaluation of redness to the left (unknown) (no (unknown) (unknown) : [id number] (units (u nknown) date) unknown) (unknown) (no (unknown) (unknown) Activity (units (unkno wn) date) Restrictions/Addition unknown) al Instructions: (unknown) (no (unknown) (unknown) Acyclovir (Acyclovir (uni ts (unknown) date) 200 Mg Capsule) 800 unknown) mg PO NOW ONE (unknown) (no (unknown) (unknown) Age/Sex: 87 / F (units (unknown) date) unknown) (unknown) (no (unknown) (unknown) Allergies (units (unkn own) date) unknown) (unknown) (no (unknown) (unknown) Allergy/AdvReac Type (uni ts (unknown) date) Severity Reaction unknown) Status Date / Time (unknown) (no (unknown) (unknown) Anemia (units (unkno wn) date) unknown) (unknown) (no (unknown) (unknown) Anesthesia (units (unk nown) date) unknown) (unknown) (no (unknown) (unknown) Asthma (units (unkno wn) date) unknown) (unknown) (no (unknown) (unknown) Atrial fibrillation (unit s (unknown) date) (-2007) unknown) (unknown) (no (unknown) (unknown) Blood Pressure (units (unknown) date) 196/86 H 04/19/22 unknown) 17:08 (unknown) (no (unknown) (unknown) Blood Pressure (units (unknown) date) 196/86 H unknown) (unknown) (no (unknown) (unknown) Cardiovascular (units (unknown) date) unknown) (unknown) (no (unknown) (unknown) Cardiovascular: (units (unknown) date) Denies dyspnea unknown) (unknown) (no (unknown) (unknown) Cataracts, bilateral (uni ts (unknown) date) (-2015) unknown) (unknown) (no (unknown) (unknown) Chicken pox (units (un known) date) unknown) (unknown) (no (unknown) (unknown) Chief complaint: (units (unknown) date) Skin/Abscess/Foreign unknown) Body (unknown) (no (unknown) (unknown) Chronic back pain (units (unknown) date) unknown) (unknown) (no (unknown) (unknown) Clinical Impression: (uni ts (unknown) date) unknown) (unknown) (no (unknown) (unknown) Const (units (unkno wn) date) unknown) (unknown) (no (unknown) (unknown) Constitutional (units (unknown) date) unknown) (unknown) (no (unknown) (unknown) Constitutional: (units (unknown) date) Denies fever(s) and unknown) Denies headache(s) (unknown) (no (unknown) (unknown) Course (units (unkno wn) date) unknown) (unknown) (no (unknown) (unknown) : 1935 (units (unknown) date) Acct:[id number] unknown) (unknown) (no (unknown) (unknown) Date of Service: (units (unknown) date) 04/19/22 unknown) (unknown) (no (unknown) (unknown) Departure (units (unkn own) date) unknown) (unknown) (no (unknown) (unknown) Discharge Plan (units (unknown) date) unknown) (unknown) (no (unknown) (unknown) Discontinued (units (u nknown) date) Medications unknown) (unknown) (no (unknown) (unknown) ENT (units (unkno wn) date) unknown) (unknown) (no (unknown) (unknown) ER Physician: (units ( unknown) date) Nicko Patten D.O. unknown) (unknown) (no (unknown) (unknown) Ears, Nose, Mouth, (units (unknown) date) and Throat: Denies unknown) headache(s) and Denies sore throat (unknown) (no (unknown) (unknown) Ears: TM normal on (units (unknown) date) the left unknown) (unknown) (no (unknown) (unknown) Effort + Inspection: (uni ts (unknown) date) normal respiratory unknown) effort (unknown) (no (unknown) (unknown) Eliquis 5 mg tablet (unit s (unknown) date) unknown) (unknown) (no (unknown) (unknown) Emergency Report (units (unknown) date) unknown) (unknown) (no (unknown) (unknown) Exam (units (unkno wn) date) unknown) (unknown) (no (unknown) (unknown) Eyes (units (unkno wn) date) unknown) (unknown) (no (unknown) (unknown) Eyes: Denies blurry (unit s (unknown) date) vision and Denies unknown) change in vision (unknown) (no (unknown) (unknown) Face and sinus: (units (unknown) date) normal facial exam unknown) (unknown) (no (unknown) (unknown) General (units (unkno wn) date) unknown) (unknown) (no (unknown) (unknown) General: Yes (units (u nknown) date) appearance normal, unknown) both eyes and all related structures (unknown) (no (unknown) (unknown) General: (units (unkno wn) date) cooperative, healthy unknown) appearing and comfortable (unknown) (no (unknown) (unknown) General: patient (units (unknown) date) alert, patient awake unknown) and moves all extremities (unknown) (no (unknown) (unknown) H/O hysterectomy (units (unknown) date) with oophorectomy unknown) (unknown) (no (unknown) (unknown) HENMT (units (unkno wn) date) unknown) (unknown) (no (unknown) (unknown) HPI - (units (unkno wn) date) Skin/Abscess/Foreign unknown) Bdy (unknown) (no (unknown) (unknown) HPI narrative: (units (unknown) date) unknown) (unknown) (no (unknown) (unknown) Heavy menstrual (units (unknown) date) period unknown) (unknown) (no (unknown) (unknown) Hematologic/Lymphati (uni ts (unknown) date) c unknown) (unknown) (no (unknown) (unknown) History of Present (units (unknown) date) Illness unknown) (unknown) (no (unknown) (unknown) History of (units (unk nown) date) appendectomy unknown) (unknown) (no (unknown) (unknown) History of (units (unk nown) date) cholecystectomy unknown) (unknown) (no (unknown) (unknown) History of surgery (units (unknown) date) unknown) (unknown) (no (unknown) (unknown) History of urinary (units (unknown) date) infection unknown) (unknown) (no (unknown) (unknown) Home Medications (units (unknown) date) unknown) (unknown) (no (unknown) (unknown) Hypertension (-1999) (uni ts (unknown) date) unknown) (unknown) (no (unknown) (unknown) Hypothyroidism (units (unknown) date) unknown) (unknown) (no (unknown) (unknown) Initial Vital Signs (unit s (unknown) date) unknown) (unknown) (no (unknown) (unknown) Initial Vital Signs: (uni ts (unknown) date) unknown) (unknown) (no (unknown) (unknown) Instructions: DI for (uni ts (unknown) date) Shingles unknown) (unknown) (no (unknown) (unknown) Integumentary/Breast (uni ts (unknown) date) s unknown) (unknown) (no (unknown) (unknown) [facility] [address] (uni ts (unknown) date) [address] unknown) [place] [address] (unknown) (no (unknown) (unknown) Limitations: no (units (unknown) date) limitations unknown) (unknown) (no (unknown) (unknown) 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) (units (unknown) date) unknown) (unknown) (no (unknown) (unknown) MDM - (units (unkno wn) date) Skin/Abscess/Foreign unknown) Bdy (unknown) (no (unknown) (unknown) MDM Narrative (units ( unknown) date) unknown) (unknown) (no (unknown) (unknown) Macular degeneration (uni ts (unknown) date) () unknown) (unknown) (no (unknown) (unknown) Measles (units (unkno wn) date) unknown) (unknown) (no (unknown) (unknown) Medical History (units (unknown) date) (Reviewed 04/19/22 @ unknown) 17:36 by Nicko Patten DO) (unknown) (no (unknown) (unknown) Medical decision (units (unknown) date) making narrative: unknown) (unknown) (no (unknown) (unknown) Medication (units (unk nown) date) Instructions Recorded unknown) Confirmed (unknown) (no (unknown) (unknown) Medication (units (unk nown) date) Instructions Recorded unknown) (unknown) (no (unknown) (unknown) Mode of arrival: (units (unknown) date) Ambulatory unknown) (unknown) (no (unknown) (unknown) Mouth: oral mucosae (unit s (unknown) date) normal unknown) (unknown) (no (unknown) (unknown) NAUSEA (units (unkno wn) date) unknown) (unknown) (no (unknown) (unknown) Neuro (units (unkno wn) date) unknown) (unknown) (no (unknown) (unknown) Neurologic (units (unk nown) date) unknown) (unknown) (no (unknown) (unknown) Neurologic: Denies (units (unknown) date) headache(s) unknown) (unknown) (no (unknown) (unknown) New (units (unkno wn) date) unknown) (unknown) (no (unknown) (unknown) No Action (units (unkn own) date) unknown) (unknown) (no (unknown) (unknown) Nose: external nose (unit s (unknown) date) normal unknown) (unknown) (no (unknown) (unknown) On Anticoagulants: (units (unknown) date) No unknown) (unknown) (no (unknown) (unknown) Ordered: (units (unkno wn) date) unknown) (unknown) (no (unknown) (unknown) Orders (units (unkno wn) date) unknown) (unknown) (no (unknown) (unknown) Other: (units (unkno wn) date) unknown) (unknown) (no (unknown) (unknown) Ovarian cyst (-1974) (uni ts (unknown) date) unknown) (unknown) (no (unknown) (unknown) Oxygen Delivery (units (unknown) date) Method 04/19/22 17:08 unknown) (unknown) (no (unknown) (unknown) Oxygen Delivery (units (unknown) date) Method Room Air unknown) (unknown) (no (unknown) (unknown) 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 She is no ear pain and no eye (unknown) (no (unknown) (unknown) Patient: (units (unkno wn) date) Kay Bernal T unknown) MR# (unknown) (no (unknown) (unknown) Prescriptions: (units (unknown) date) unknown) (unknown) (no (unknown) (unknown) Previous Rx's (units ( unknown) date) unknown) (unknown) (no (unknown) (unknown) Pulse Oximetry 99 (units (unknown) date) 04/19/22 17:08 unknown) (unknown) (no (unknown) (unknown) Pulse Oximetry 99 (units (unknown) date) unknown) (unknown) (no (unknown) (unknown) Pulse Rate 96 H (units (unknown) date) 04/19/22 17:08 unknown) (unknown) (no (unknown) (unknown) Pulse Rate 96 H (units (unknown) date) unknown) (unknown) (no (unknown) (unknown) Referrals: (units (unk nown) date) unknown) (unknown) (no (unknown) (unknown) Related Data (units (u nknown) date) unknown) (unknown) (no (unknown) (unknown) Resp (units (unkno wn) date) unknown) (unknown) (no (unknown) (unknown) Respiratory Rate 16 (unit s (unknown) date) 04/19/22 17:08 unknown) (unknown) (no (unknown) (unknown) Respiratory Rate 16 (unit s (unknown) date) unknown) (unknown) (no (unknown) (unknown) Respiratory (units (un known) date) unknown) (unknown) (no (unknown) (unknown) Respiratory: Denies (unit s (unknown) date) dyspnea unknown) (unknown) (no (unknown) (unknown) Review of Systems (units (unknown) date) unknown) (unknown) (no (unknown) (unknown) Shingles (units (unkno wn) date) unknown) (unknown) (no (unknown) (unknown) Signed By: (units (unk nown) date) unknown) (unknown) (no (unknown) (unknown) Skin (units (unkno wn) date) unknown) (unknown) (no (unknown) (unknown) Skin/Breast: Reports (uni ts (unknown) date) system reviewed and unknown) no additional complaints, except as (unknown) (no (unknown) (unknown) Smoking Status: (units (unknown) date) Never smoker unknown) (unknown) (no (unknown) (unknown) Social History (units (unknown) date) (Reviewed 04/19/22 @ unknown) 17:36 by Nicko Patten DO) (unknown) (no (unknown) (unknown) Source: patient and (unit s (unknown) date) family unknown) (unknown) (no (unknown) (unknown) Stated complaint: (units (unknown) date) neck/head/chest unknown) red/weepy/painful rash (unknown) (no (unknown) (unknown) Stop: 04/19/22 17:30 (uni ts (unknown) date) unknown) (unknown) (no (unknown) (unknown) Substance Use Type: (unit s (unknown) date) does not use unknown) (unknown) (no (unknown) (unknown) Surgical History (units (unknown) date) (Updated 04/16/21 @ unknown) 21:37 by Mariana Joyce) (unknown) (no (unknown) (unknown) Temperature 98.3 F (units (unknown) date) 04/19/22 17:08 unknown) (unknown) (no (unknown) (unknown) Temperature 98.3 F (units (unknown) date) unknown) (unknown) (no (unknown) (unknown) The rash today is (units (unknown) date) consistent with unknown) shingles. A prescription for medication to (unknown) (no (unknown) (unknown) Throat: posterior (units (unknown) date) oropharynx normal unknown) (unknown) (no (unknown) (unknown) Time Seen by (units (u nknown) date) Provider: 04/19/22 unknown) 17:21 (unknown) (no (unknown) (unknown) Vital Signs - 8 hr (units (unknown) date) unknown) (unknown) (no (unknown) (unknown) Vital Signs (units (un known) date) unknown) (unknown) (no (unknown) (unknown) Vital signs: (units (u nknown) date) unknown) (unknown) (no (unknown) (unknown) Delia Louis PA-C (uni ts (unknown) date) [Primary Care unknown) Provider] (unknown) (no (unknown) (unknown) [SHELLFISH DERIVED] (unit s (unknown) date) VOMITING unknown) (unknown) (no (unknown) (unknown) acyclovir 800 mg (units (unknown) date) tablet 800 mg PO QID unknown) 10 days #40 tabs 04/19/22 (unknown) (no (unknown) (unknown) acyclovir 800 mg (units (unknown) date) tablet unknown) (unknown) (no (unknown) (unknown) anything for the (units (unknown) date) symptoms. No eye unknown) symptoms. No ear symptoms. No problems (unknown) (no (unknown) (unknown) apixaban 5 mg tablet (uni ts (unknown) date) (Eliquis) 5 mg PO BID unknown) 03/18/21 04/17/21 (unknown) (no (unknown) (unknown) breathing. She has (units (unknown) date) had shingles in the unknown) past. (unknown) (no (unknown) (unknown) clustering vesicles. (uni ts (unknown) date) The rash is unknown) consistent with shingles. (unknown) (no (unknown) (unknown) codeine [CODEINE] (units (unknown) date) Allergy Intermediate unknown) HIVES, Unverified 11/10/17 12:24 (unknown) (no (unknown) (unknown) days ago. She states (uni ts (unknown) date) that it does itch and unknown) has some burning. Has not tried (unknown) (no (unknown) (unknown) documented (units (unk nown) date) unknown) (unknown) (no (unknown) (unknown) dose here in the (units (unknown) date) emergency department unknown) and a prescription was sent to [facility] (unknown) (no (unknown) (unknown) drug. Return (units (u nknown) date) precautions were unknown) given. (unknown) (no (unknown) (unknown) estradiol 0.01 % (units (unknown) date) (0.1 mg/gram) cream unknown) (unknown) (no (unknown) (unknown) estradiol 0.01% (0.1 (uni ts (unknown) date) mg/gram) 1 g vaginal unknown) DAILY Vaginal atrophy 03/18/21 (unknown) (no (unknown) (unknown) help with this was (units (unknown) date) sent to [facility] unknown) in [place]. Please pick it up and (unknown) (no (unknown) (unknown) however family (units (unknown) date) thinks that was most unknown) likely longer than that. We are little (unknown) (no (unknown) (unknown) hydrochlorothiazide (unit s (unknown) date) 12.5 mg capsule 12.5 unknown) mg PO DAILY 03/18/21 04/17/21 (unknown) (no (unknown) (unknown) hydrochlorothiazide (unit s (unknown) date) 12.5 mg capsule unknown) (unknown) (no (unknown) (unknown) left jaw along her (units (unknown) date) left mandible and unknown) also along the back of her neck. There are (unknown) (no (unknown) (unknown) levothyroxine 125 (units (unknown) date) mcg capsule 125 mcg unknown) PO DAILY 03/18/21 04/17/21 (unknown) (no (unknown) (unknown) levothyroxine 125 (units (unknown) date) mcg capsule unknown) (unknown) (no (unknown) (unknown) metoprolol succinate (uni ts (unknown) date) 25 mg 25 mg PO DAILY unknown) 03/18/21 04/17/21 (unknown) (no (unknown) (unknown) metoprolol succinate (uni ts (unknown) date) 25 mg tablet extended unknown) release 24 hr (unknown) (no (unknown) (unknown) pain. She is (units (u nknown) date) afebrile. Patient unknown) states that it started over the past 24 hours (unknown) (no (unknown) (unknown) rosuvastatin 10 mg (units (unknown) date) tablet 10 mg PO DAILY unknown) 03/18/21 04/17/21 (unknown) (no (unknown) (unknown) rosuvastatin 10 mg (units (unknown) date) tablet unknown) (unknown) (no (unknown) (unknown) shellfish derived (units (unknown) date) Allergy Intermediate unknown) NAUSEA, Unverified 11/10/17 12:24 (unknown) (no (unknown) (unknown) side of her neck and (uni ts (unknown) date) chest and the back of unknown) her head. Patient states that it (unknown) (no (unknown) (unknown) start taking it as (units (unknown) date) directed. Contact unknown) your primary doctor for follow-up. Return (unknown) (no (unknown) (unknown) started today however (uni ts (unknown) date) family at bedside unknown) states that he probably started a couple (unknown) (no (unknown) (unknown) tablet,extended (units (unknown) date) release 24 hr unknown) (unknown) (no (unknown) (unknown) to the emergency (units (unknown) date) department for any unknown) new or worsening symptoms. (unknown) (no (unknown) (unknown) unsure exactly when (unit s (unknown) date) it started. Will unknown) treat her with acyclovir. She was given a (unknown) (no (unknown) (unknown) vaginal cream #42.5 (unit s (unknown) date) grams unknown) (unknown) (no (unknown) (unknown) valsartan 80 mg (units (unknown) date) tablet 80 mg PO DAILY unknown) 03/18/21 04/17/21 (unknown) (no (unknown) (unknown) valsartan 80 mg (units (unknown) date) tablet unknown) Social History No information. Vital Signs No information.
[2022-04-20] MEDS ORDERED: GABAPENTIN 100 MG CAPSULE PO STA (07:52)
[2022-04-20] MEDS ORDERED: LIDOCAINE PATCH 5% TOP STA (07:52)
[2022-04-20 08:08] LABS: BASOPHILS % (AUTO) 0.5 %; EOSINOPHILS # (AUTO) 0.1 10^3/uL (0.0-0.7); EOSINOPHILS % (AUTO) 1.2 %; HCT - HEMATOCRIT 40.9 % (37.0-47.0); HGB - HEMOGLOBIN 13.5 g/dL (12.0-16.0); LYMPHOCYTES # (AUTO) 2.4 10^3/uL (1.5-3.5); LYMPHOCYTES % (AUTO) 32.4 %; MEAN CORPUSCULAR HEMOGLOBIN 29.9 pg (27.0-31.0); MEAN CORPUSCULAR VOLUME 90.5 fL (81.0-99.0); MEAN PLATELET VOLUME 10.5 fL (7.9-10.8); MONOCYTES # (AUTO) 1.4 10^3/uL (0.0-1.0); MONOCYTES % (AUTO) 18.9 %; NEUTROPHILS # (AUTO) 3.4 10^3/uL (1.5-6.6); NEUTROPHILS % (AUTO) 46.9 %; PLT - PLATELET COUNT 210 10^3/uL (130-450); RED BLOOD COUNT 4.52 10^6/uL (4.20-5.40); RED CELL DISTRIBUTION WIDTH 13.9 % (12.0-15.0); WHITE BLOOD COUNT 7.3 x10^3/uL (4.8-10.8)
[2022-04-20 08:20] LABS: ALBUMIN 4.1 g/dL (3.2-5.5); ALBUMIN/GLOBULIN RATIO 1.2 (1.0-2.2); BILIRUBIN,TOTAL 0.7 mg/dL (0.2-1.0); CALCIUM 9.7 mg/dL (8.5-10.3); CREATININE 0.7 mg/dL (0.4-1.0); TOTAL PROTEIN 7.4 g/dL (6.7-8.2)
[2022-04-20] MEDS ORDERED: LIDOCAINE PATCH 5% TOP ONE (08:20)
[2022-04-20] MEDS ORDERED: MAGNESIUM OXIDE 400 MG TABLET PO SCH (09:00)
[2022-04-20] MEDS ORDERED: POTASSIUM CHLORIDE 20 MEQ/15 ML UDC PO SCH (09:00)
[2022-04-20 09:06] LABS: BILIRUBIN,URINE NEGATIVE (NEGATIVE); GLUCOSE, URINE (UA) NEGATIVE (NEGATIVE); KETONES,URINE (UA) NEGATIVE (NEGATIVE); LEUKOCYTE ESTERASE, URINE MODERATE (NEGATIVE); NITRITE,URINE NEGATIVE (NEGATIVE); OCCULT BLOOD,URINE MODERATE (NEGATIVE); PH,URINE 6.5 PH (5.0-7.5); PROTEIN,URINE NEGATIVE (NEGATIVE); UROBILINOGEN,URINE 0.2 (NORMAL) E.U./dL (NORMAL)
[2022-04-20 09:23] LABS: CLARITY,URINE HAZY (CLEAR); RBC,URINE 0-5 /HPF (0-5); SQUAMOUS EPITHELIAL CELL,UR RARE Squamous (<= Few); WBC CLUMPS,URINE PRESENT; WBC,URINE >25 /HPF (0-5)
[2022-04-20 09:24] LABS: BACTERIA,URINE Few /HPF (None Seen)
[2022-04-20] MEDS ORDERED: cephALEXin 250 MG CAPSULE PO STA (09:32)
[2022-04-20 10:43] VITALS: BP 159/88
== END 2022-04-20 10:54 | disposition home or self-care (01) ==
LOC: EDUNIT# → ED 07:23
DX: B02.9 Zoster without complications (principal); N39.0 Urinary tract infection, site not specified
CPT/HCPCS: 36415; 80053; 81001; 83690; 85025; 87086; 99283; 99284; A9270; 81003

== ENCOUNTER 2022-04-30 14:48 | Outpatient (CLI) | payer MEDICARE, OTHER | END 2022-04-30 14:49 | disposition critical access hospital (66) | LOC: EMS 14:48 | DX: M25.552 Pain in left hip (principal); M54.2 Cervicalgia; R53.1 Weakness; W18.39XA Other fall on same level, initial encounter; Y93.01 Activity, walking, marching and hiking; Y92.003 Bedroom of unspecified non-institutional (private) residence as the place of occurrence of the external cause | CPT/HCPCS: A0425; A0427 ==

== ENCOUNTER 2022-04-30 15:01 | Emergency (ER) | payer MEDICARE, OTHER ==
--- OUTSIDE RECORDS SUMMARY | 2022-04-30 15:10 | EXTERNAL MEDICAL SUMMARY RPT | Continuity of Care Document ---
:1935 Author Organization [facility] Address [address] [place] [address] Phone Allergies and Intolerances date description facility type (no date) [facility] (unknown) (no date) shellfish [facility] (unknown) Encounters No information. Functional Status No [...] the left (unknown) (no (unknown) (unknown) : [id number] (units (u nknown) date) unknown) (unknown) (no [...] (unknown) (unknown) : 1935 (units (unknown) date) Acct:[id number] unknown) (unknown) (no (unknown) (unknown) Date of [...] (unknown) date) unknown) (unknown) (no (unknown) (unknown) [facility] [address] (uni ts (unknown) date) [address] unknown) [place] [address] (unknown) (no (unknown) (unknown) Limitations: no (units [...] Patten D.O.> (unknown) (no (unknown) (unknown) 04/19/22 6493 (units ( unknown) date) unknown) (unknown) (no [...] the left (unknown) (no (unknown) (unknown) : [id number] (units (u nknown) date) unknown) (unknown) (no [...] (unknown) Cataracts, bilateral (uni ts (unknown) date) (-2016) unknown) (unknown) (no (unknown) (unknown) Chicken pox [...] (unknown) (unknown) : 1935 (units (unknown) date) Acct:[id number] unknown) (unknown) (no (unknown) (unknown) Date of [...] date) s unknown) (unknown) (no (unknown) (unknown) [facility] [address] (uni ts (unknown) date) [address] unknown) [place] [address] (unknown) (no (unknown) (unknown) Limitations: no (units (unknown) date) limitations unknown) (unknown) (no (unknown) (unknown) 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) (units (unknown) date) unknown) (unknown) (no (unknown) (unknown) MDM - (units (unkno wn) date) Skin/Abscess/Foreign unknown) Bdy (unknown) (no (unknown) (unknown) MDM Narrative (units ( unknown) date) unknown) (unknown) (no (unknown) (unknown) Macular degeneration (uni ts (unknown) date) (-2017) unknown) (unknown) (no (unknown) (unknown) Measles (units [...] unknown) and a prescription was sent to [facility] (unknown) (no (unknown) (unknown) drug. Return (units (u nknown) date) precautions were unknown) given. (unknown) (no (unknown) (unknown) estradiol 0.01 % (units (unknown) date) (0.1 mg/gram) cream unknown) (unknown) (no (unknown) (unknown) estradiol 0.01% (0.1 (uni ts (unknown) date) mg/gram) 1 g vaginal unknown) DAILY Vaginal atrophy 03/18/21 (unknown) (no (unknown) (unknown) help with this was (units (unknown) date) sent to [facility] unknown) in [place]. Please pick it up and (unknown) (no [...]
[2022-04-30 15:20] LABS: BASOPHILS # (AUTO) 0.1 10^3/uL (0.0-0.1); BASOPHILS % (AUTO) 0.9 %; EOSINOPHILS # (AUTO) 0.3 10^3/uL (0.0-0.7); EOSINOPHILS % (AUTO) 3.2 %; HCT - HEMATOCRIT 41.6 % (37.0-47.0); HGB - HEMOGLOBIN 13.5 g/dL (12.0-16.0); LYMPHOCYTES # (AUTO) 2.8 10^3/uL (1.5-3.5); MEAN CORPUSCULAR HEMOGLOBIN 30.1 pg (27.0-31.0); MEAN CORPUSCULAR HGB CONC 32.5 g/dL (32.0-36.0); MEAN CORPUSCULAR VOLUME 92.7 fL (81.0-99.0); MEAN PLATELET VOLUME 9.6 fL (7.9-10.8); MONOCYTES # (AUTO) 1.1 10^3/uL (0.0-1.0); MONOCYTES % (AUTO) 10.9 %; NEUTROPHILS % (AUTO) 57.3 %; PLT - PLATELET COUNT 394 10^3/uL (130-450); RED BLOOD COUNT 4.49 10^6/uL (4.20-5.40); RED CELL DISTRIBUTION WIDTH 14.5 % (12.0-15.0); WHITE BLOOD COUNT 10.5 x10^3/uL (4.8-10.8)
[2022-04-30 15:33] LABS: ALBUMIN 3.7 g/dL (3.2-5.5); ALBUMIN/GLOBULIN RATIO 1.1 (1.0-2.2); BILIRUBIN,TOTAL 0.9 mg/dL (0.2-1.0); CALCIUM 9.6 mg/dL (8.5-10.3); CREATININE 0.9 mg/dL (0.4-1.0); POTASSIUM 3.8 mmol/L (3.5-5.0)
--- NOTE | 2022-04-30 16:05 | CT Report ---
PROCEDURE: HEAD WO INDICATIONS: fall TECHNIQUE: Noncontrast 4.5 mm thick angled axial sections acquired from the foramen magnum to the vertex. For r adiation dose reduction, the following was used: automated exposure control, adjustment of mA and/or kV according to patient size. COMPARISON: CT cervical spine 04/30/2022. FINDINGS: Image quality: Excellent. The ventricular system and cortical sulci demonstrate atrophy, consistent for patient's stated age. There are areas of hypodensity in the periventricular and subcortical white matter. There is no acut e intra or extra-axial fluid collection. No acute hemorrhage, mass lesion or midline shift. Brainst em is unremarkable. Globes are symmetrical. Sinuses are aerated. Osseous structures are intact. IMPRESSION: 1. No acute intracranial process. 2. Moderate atrophy and chronic microvascular ischemic changes. Reviewed by: Татьяна Leyva MD on 04/30/2022 4:03 PM PDT Approved by: Татьяна Leyva MD on 04/30/2022 4:03 PM PDT Station ID: [id number]
--- NOTE | 2022-04-30 16:06 | CT Report ---
PROCEDURE: CERVICAL SPINE WO INDICATIONS: fall TECHNIQUE: Noncontrast 3 mm thick sections acquired from the skull base to the T4 level. Sagittal and coronal r eformats were then constructed. For radiation dose reduction, the following was used: automated exp osure control, adjustment of mA and/or kV according to patient size. COMPARISON: CT head 04/30/2022. FINDINGS: Image quality: Excellent. Bones: No fractures or dislocations. Visualized superior ribs are intact. No visualized fractures or dislocations. Soft tissues: Prevertebral soft tissues are normal in thickness. No paravertebral hematomas. No ap ical pneumothoraces. IMPRESSION: Degenerative changes of visualized fracture. Reviewed by: Татьяна Leyva MD on 04/30/2022 4:04 PM PDT Approved by: Татьяна Leyva MD on 04/30/2022 4:04 PM PDT Station ID: [id number]
--- NOTE | 2022-04-30 16:07 | XRAY Report ---
PROCEDURE: Chest 1 View X-Ray INDICATIONS: weak TECHNIQUE: One view of the chest was acquired. COMPARISON: None FINDINGS: Surgical changes and devices: Pacemaker. Lungs and pleura: No pleural effusions or pneumothorax. Lungs are clear. Mediastinum: Mediastinal contours appear normal. Heart size is mildly enlarged. Bones and chest wall: No suspicious bony lesions. Overlying soft tissues appear unremarkable. IMPRESSION: No acute pulmonary process. Reviewed by: Татьяна Leyva MD on 04/30/2022 4:05 PM PDT Approved by: Татьяна Leyva MD on 04/30/2022 4:05 PM PDT Station ID: [id number]
--- NOTE | 2022-04-30 16:08 | XRAY Report ---
PROCEDURE: Hip w/Pelvis 2-3V LT INDICATIONS: fall/pain TECHNIQUE: AP pelvis with lateral view(s) of the left hip(s). COMPARISON: None. FINDINGS: Bones: There is a poorly visualized nondisplaced lucency along the medial aspect of the superior scar ral neck seen on AP view. Secondary to overlapping shadows, this region is not well evaluated on cros stable lateral. Pelvic ring appears intact. No suspicious bony lesions. Soft tissues: The visualized bowel gas pattern is normal. No suspicious soft tissue calcifications. IMPRESSION: Nonspecific lucency seen in the superior aspect of the left femoral neck. Fracture canno t be excluded. If concern persists, CT pelvis is recommended. Reviewed by: Татьяна Leyva MD on 04/30/2022 4:07 PM PDT Approved by: Татьяна Leyva MD on 04/30/2022 4:07 PM PDT Station ID: [id number]
[2022-04-30] MEDS: ONDANSETRON 4 MG/2 ML VIAL IVP STA (16:53)
[2022-04-30] MEDS: MORPHINE 2 MG/ML CARPUJECT IVP STA (16:57)
--- NOTE | 2022-04-30 18:24 | CT Report ---
PROCEDURE: LOWER EXTREMITY WO - LT INDICATIONS: L hip pain;abnormal XR ?fem neck fx TECHNIQUE: Noncontrast 3-mm axial sections acquired from the distal tibial shaft to the talar dome, with coronal and sagittal reformats. For radiation dose reduction, the following was used: automated exposure c ontrol, adjustment of mA and/or kV according to patient size. COMPARISON: Hip radiograph from the same day. FINDINGS: Image quality: Excellent. Bones: There is an acute fracture involving subcapital region of left femoral neck with slight anter ior displacement at fracture site. Left hip joint osteophytic changes are seen. No evidence of avascu lar necrosis of femoral head. No other fracture or dislocation. Degenerative disc disease in visualiz ed lower lumbar spine is seen. Soft tissues: There is mild soft tissue swelling and edema surrounding left femoral neck fracture si sylvain. No significant joint effusion. No abnormal soft tissue calcifications. Visualized portion of pel vis shows no free fluid of free air. Impression: 1. Acute minimally displaced fracture involving subcapital region of left femoral neck. No other frac ture or dislocation. 2. Left hip joint osteoarthritis. No evidence of avascular necrosis of femoral head. 3. Mild soft tissue swelling and edema adjacent to the left femoral neck fracture site. No pelvic skylar e fluid of free air. Reviewed by: Tony Thorpe MD on 04/30/2022 6:23 PM PDT Approved by: Tony Thorpe MD on 04/30/2022 6:23 PM PDT Station ID: [id number]
[2022-04-30 18:29] LABS: BILIRUBIN,URINE NEGATIVE (NEGATIVE); GLUCOSE, URINE (UA) NEGATIVE (NEGATIVE); KETONES,URINE (UA) NEGATIVE (NEGATIVE); LEUKOCYTE ESTERASE, URINE LARGE (NEGATIVE); NITRITE,URINE NEGATIVE (NEGATIVE); OCCULT BLOOD,URINE MODERATE (NEGATIVE); PROTEIN,URINE TRACE mg/dL (NEGATIVE); UROBILINOGEN,URINE 0.2 (NORMAL) E.U./dL (NORMAL)
[2022-04-30 18:35] LABS: CLARITY,URINE SL. CLOUDY (CLEAR)
[2022-04-30 18:38] LABS: BACTERIA,URINE Few /HPF (None Seen); SQUAMOUS EPITHELIAL CELL,UR FEW Squamous (<= Few); WBC,URINE >25 /HPF (0-5)
--- NOTE | 2022-04-30 18:46 | ED Physician Documentation ---
History of Present Illness - Stated complaint Stated Complaint: FALL - Chief complaint Chief Complaint: General - History obtained from History obtained from: Patient, EMS - Additonal information Additional information: Patient is an 87-year-old female presenting for evaluation of a ground-level fall. She is currently undergoing treatment for shingles and has been feeling weak. She was try to get up to go to the bathroom when she was feeling lightheaded and slumped down to the ground. She did hit the back of her head. She did not lose consciousness. She does report pain to the left hip. She does take Eliquis and per her daughter her last took it either this morning or last evening. Review of Systems Constitutional: denies: Fever Nose: denies: Congestion Cardiac: denies: Chest pain / pressure Respiratory: denies: Dyspnea GI: denies: Abdominal Pain : denies: Dysuria Skin: reports: Rash Musculoskeletal: reports: Extremity pain Neurologic: reports: Head injury PD PAST MEDICAL HISTORY - Past Medical History Past Medical History: Yes Cardiovascular: Coronary artery disease Respiratory: Asthma Endocrine/Autoimmune: HyPOthyroidism : Retention HEENT: None Musculoskeletal: Fatigue - Past Surgical History Past Surgical History: Yes General: Cholecystectomy, Appendectomy, Splenectomy /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: Hysterectomy Cardiovascular: Pacemaker - Present Medications Home Medications: Ambulatory Orders Medication Instructions Recorded Confirmed Albuterol Sulf [Ventolin Hfa 1 - 2 puffs INH Q4HR PRN 08/11/16 08/11/16 Inhaler] Azelastine HCl 137 mcg NS DAILY 08/11/16 08/11/16 Famotidine [Pepcid] 20 mg PO DAILY 08/11/16 08/11/16 Fluticasone/Salmeterol 500/50 1 puffs INH BID 08/11/16 08/11/16 [Advair 500 Mcg/50 Mcg] Levothyroxine Sodium [Synthroid] 100 mcg PO DAILY 08/11/16 08/11/16 Rosuvastatin [Crestor] 10 mg PO DAILY 08/11/16 08/11/16 Warfarin [Coumadin] 2.5 mg PO 1400 08/11/16 08/11/16 cephALEXin [Keflex] 500 mg PO Q6H 7 Days capsule 08/11/16 Acyclovir 800 mg PO QID #40 tablet 04/20/22 Gabapentin [Neurontin] 100 mg PO TID PRN #30 cap 04/20/22 Lidocaine Patch 5% [Lidoderm Patch] 1 patch TOP DAILY PRN #10 patch 04/20/22 Potassium Chloride [K-Dur] 20 meq PO DAILY #30 tablet 04/20/22 cephALEXin [Keflex] 500 mg PO Q6H #20 cap 04/20/22 - Allergies Allergies/Adverse Reactions: Allergies Allergy/AdvReac Type Severity Reaction Status Date / Time codeine [Codeine] Allergy Unknown unknown Verified 04/30/22 16:53 ciprofloxacin [From Cipro] Allergy Unknown Verified 08/11/16 11:01 ciprofloxacin HCl * Allergy Unknown Verified 08/11/16 11:01 [From Cipro] cyanocobalamin (vitamin B12) Allergy Unknown Verified 08/11/16 11:01 iodine Allergy Unknown Verified 08/11/16 11:01 - Social History Does the pt smoke?: No Smoking Status: Never smoker PD ED PE NORMAL - General General: Alert and oriented X 3 (Alert), No acute distress, Well developed/nourished - HEENT HEENT: Atraumatic, Ears normal, Pharynx benign, Dentition benign - Neck Neck: Supple, no meningeal sign, Other (Mild midline C-spine tenderness, crusting shingles rash extending from neck onto chest wall; Unclear whether pain is from rash or spinal tenderness so cervical collar was placed) - Cardiac Cardiac: RRR, No murmur, Strong equal pulses - Respiratory Respiratory: No respiratory distress, Clear bilaterally - Abdomen Abdomen: Non tender, Non distended - Derm Derm: Other (Crusting, scabbed rash consistent with shingles to left neck and chest wall) - Extremities Extremities: Other (Left hip tenderness) - Neuro Neuro: Alert and oriented X 3, No motor deficit, Normal speech Results - Vitals Vitals: Vital Signs - 24 hr 04/30/22 04/30/22 15:10 17:26 Temperature 36.8 C Heart Rate 63 60 Respiratory 16 16 Rate Blood Pressure 124/52 L 96/61 O2 Saturation 98 96 Oxygen O2 Source Room air - EKG (time done) 1618 Rate: Rate (enter#) (69) Rhythm: Other (Ventricular rhythm) Intervals: Other (QTC 512) Ischemia: No: ST elevation c/w ischemia - Labs Labs: Laboratory Tests 04/30/22 04/30/22 04/30/22 15:07 15:07 18:25 WBC 10.5 RBC 4.49 Hgb 13.5 Hct 41.6 MCV 92.7 MCH 30.1 MCHC 32.5 RDW 14.5 Plt Count 394 MPV 9.6 Neut # (Auto) 6.0 Lymph # (Auto) 2.8 [place] # (Auto) 1.1 H Eos # (Auto) 0.3 Baso # (Auto) 0.1 Absolute Nucleated RBC 0.00 Nucleated RBC % 0.0 Sodium 136 Potassium 3.8 Chloride 102 Carbon Dioxide 28 Anion Gap 6.0 BUN 23 H Creatinine 0.9 Estimated GFR (MDRD) 59 L Glucose 114 H Calcium 9.6 Total Bilirubin 0.9 AST 32 ALT 26 Alkaline Phosphatase 37 L Total Protein 7.0 Albumin 3.7 Globulin 3.3 Albumin/Globulin Ratio 1.1 Lipase 42 Urine Color YELLOW Urine Clarity SL. CLOUDY Urine pH 6.0 Ur Specific [place] 1.025 Urine Protein TRACE Urine Glucose (UA) NEGATIVE Urine Ketones NEGATIVE Urine Occult Blood MODERATE H Urine Nitrite NEGATIVE Urine Bilirubin NEGATIVE Urine Urobilinogen 0.2 (NORMAL) Ur Leukocyte Esterase LARGE H Urine RBC 11-25 H Urine WBC >25 H Ur Squamous Epith Cells FEW Squamous Urine Bacteria Few Ur Microscopic Review INDICATED Urine Culture Comments INDICATED PD MEDICAL DECISION MAKING - ED course Complexity details: reviewed results, re-evaluated patient, d/w patient, d/w family ED course: Patient with ground-level fall after feeling weak. CT head and cervical spine obtained as well as x-ray of left hip. X-ray of left hip with concerns for fracture and CT scan was obtained confirming femoral neck fracture. Cervical spine was cleared Clinically as well after CT C-spine was reviewed. 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 Patient signed out to Dr. Wellington at shift change, patient is pending transfer to facility with orthopedic capabilities. Departure - Departure Disposition: 02 Transfer Acute Care Hosp Clinical Impression: Generalized weakness Fracture of femoral neck, left, closed Qualifiers: Encounter type: initial encounter Qualified Code(s): S72.002A - Fracture of unspecified part of neck of left femur, initial encounter for closed fracture UTI (urinary tract infection) Qualifiers: Urinary tract infection type: acute cystitis Condition: Stable
[2022-04-30] MEDS: SODIUM CHLORIDE 0.9% 1,000 ML IV SCH (20:31)
[2022-04-30] MEDS: HYDROmorphone 0.5 MG/0.5 ML SYRINGE IVP STA (20:32)
[2022-04-30] MEDS ORDERED: cefTRIAXone 2 GM in SODIUM CHLORIDE 0.9% MINIBAG 100 ML IV STA (21:12)
[2022-04-30 21:20] LABS: INR 1.5 (0.8-1.2); PT - PROTHROMBIN TIME 16.4 secs (9.9-12.6)
[2022-04-30 21:27] VITALS: BP 121/62
[2022-04-30] MEDS ORDERED: cefTRIAXone 2 GM VIAL ONE (21:48)
== END 2022-04-30 22:25 | disposition short-term general hospital (02) ==
LOC: EDUNIT# → ED 15:01
DX: S72.002A Fracture of unspecified part of neck of left femur, initial encounter for closed fracture (principal); N30.00 Acute cystitis without hematuria; W18.30XA Fall on same level, unspecified, initial encounter; Z20.822 Contact with and (suspected) exposure to COVID-19
CPT/HCPCS: 36415; 70450; 71045; 72125; 73502; 73700; 80053; 81001; 83690; 85025; 85610; 87086; 87635; 93005; 96374; 96375; 99283; 99285; J1170; 81003

== ENCOUNTER 2023-10-25 08:00 | Outpatient (CLI) | payer MEDICARE, OTHER | END 2023-10-25 23:59 | disposition home or self-care (01) | LOC: PC 08:00 | PROVIDERS: ATTEND Nurse Practitioner Gerontology | DX: Z51.5 Encounter for palliative care (principal); F01.511 Vascular dementia, unspecified severity, with agitation; R26.89 Other abnormalities of gait and mobility; I48.91 Unspecified atrial fibrillation; I35.0 Nonrheumatic aortic (valve) stenosis; Z79.899 Other long term (current) drug therapy; Z91.81 History of falling; Z87.820 Personal history of traumatic brain injury; Z87.81 Personal history of (healed) traumatic fracture; Z63.8 Other specified problems related to primary support group; Z71.89 Other specified counseling; Z66 Do not resuscitate; Z95.0 Presence of cardiac pacemaker | CPT/HCPCS: 99350 ==

== ENCOUNTER 2023-11-23 08:00 | Outpatient (CLI) | payer MEDICARE, OTHER | END 2023-11-23 08:01 | disposition home or self-care (01) | LOC: PC 08:00 | PROVIDERS: ATTEND Nurse Practitioner Gerontology | DX: Z51.5 Encounter for palliative care (principal); G30.9 Alzheimer's disease, unspecified; F02.80 Dementia in other diseases classified elsewhere, unspecified severity, without behavioral disturbance, psychotic disturbance, mood disturbance, and anxiety; F01.50 Vascular dementia, unspecified severity, without behavioral disturbance, psychotic disturbance, mood disturbance, and anxiety; I48.91 Unspecified atrial fibrillation; R26.89 Other abnormalities of gait and mobility; F41.9 Anxiety disorder, unspecified; Z66 Do not resuscitate | CPT/HCPCS: 99350 ==

== ENCOUNTER 2023-12-17 08:00 | Outpatient (CLI) | payer MEDICARE, OTHER | END 2023-12-17 23:59 | disposition home or self-care (01) | LOC: PC 08:00 | PROVIDERS: ATTEND Nurse Practitioner Gerontology | DX: Z51.5 Encounter for palliative care (principal); R26.89 Other abnormalities of gait and mobility; G30.9 Alzheimer's disease, unspecified; F02.80 Dementia in other diseases classified elsewhere, unspecified severity, without behavioral disturbance, psychotic disturbance, mood disturbance, and anxiety | CPT/HCPCS: 99349 ==

== ENCOUNTER 2024-02-22 08:00 | Outpatient (CLI) | payer MEDICARE | END 2024-02-22 23:59 | disposition home or self-care (01) | LOC: PC 08:00 | PROVIDERS: ATTEND Nurse Practitioner Gerontology | DX: Z51.5 Encounter for palliative care (principal); G30.9 Alzheimer's disease, unspecified; F02.84 Dementia in other diseases classified elsewhere, unspecified severity, with anxiety; F01.C4 Vascular dementia, severe, with anxiety; I48.21 Permanent atrial fibrillation | CPT/HCPCS: 99350 ==

== ENCOUNTER 2024-03-01 12:35 | Outpatient (CLI) | payer MEDICARE, OTHER ==
[2024-03-01 12:58] LABS: BASOPHILS # (AUTO) 0.1 10^3/uL (0.0-0.1); EOSINOPHILS # (AUTO) 0.7 10^3/uL (0.0-0.7); EOSINOPHILS % (AUTO) 8.4 %; HCT - HEMATOCRIT 38.9 % (37.0-47.0); HGB - HEMOGLOBIN 11.8 g/dL (12.0-16.0); LYMPHOCYTES # (AUTO) 2.1 10^3/uL (1.5-3.5); LYMPHOCYTES % (AUTO) 26.9 %; MEAN CORPUSCULAR HEMOGLOBIN 29.2 pg (27.0-31.0); MEAN CORPUSCULAR HGB CONC 30.3 g/dL (32.0-36.0); MEAN CORPUSCULAR VOLUME 96.3 fL (81.0-99.0); MEAN PLATELET VOLUME 10.1 fL (7.9-10.8); MONOCYTES % (AUTO) 12.1 %; NEUTROPHILS # (AUTO) 4.1 10^3/uL (1.5-6.6); NEUTROPHILS % (AUTO) 51.5 %; PLT - PLATELET COUNT 234 10^3/uL (130-450); RED BLOOD COUNT 4.04 10^6/uL (4.20-5.40); RED CELL DISTRIBUTION WIDTH 14.8 % (12.0-15.0)
[2024-03-01 13:11] LABS: ALBUMIN 4.4 g/dL (3.2-5.5); ALBUMIN/GLOBULIN RATIO 1.3 (1.0-2.2); BILIRUBIN,TOTAL 0.7 mg/dL (0.2-1.0); CREATININE 0.9 mg/dL (0.6-1.3); POTASSIUM 4.1 mmol/L (3.5-4.5); TOTAL PROTEIN 7.8 g/dL (6.4-8.9)
[2024-03-01 13:25] LABS: THYROID STIMULATING HORMONE 3.55 uIU/mL (0.34-5.60)
== END 2024-03-01 12:36 | disposition home or self-care (01) ==
LOC: LAB 12:35
PROVIDERS: ATTEND Nurse Practitioner Gerontology
DX: E87.6 Hypokalemia (principal); E55.9 Vitamin D deficiency, unspecified; D51.0 Vitamin B12 deficiency anemia due to intrinsic factor deficiency; E03.9 Hypothyroidism, unspecified
CPT/HCPCS: 36415; 80053; 82306; 82607; 84443; 85025

== ENCOUNTER 2024-03-11 01:26 | Outpatient (CLI) | payer MEDICARE | END 2024-03-11 23:59 | disposition EMS.NT | LOC: EMS 01:26 | DX: Z03.89 Encounter for observation for other suspected diseases and conditions ruled out (principal) ==

== ENCOUNTER 2024-03-11 14:46 | Outpatient (CLI) | payer MEDICARE | END 2024-03-11 14:47 | disposition critical access hospital (66) | LOC: EMS 14:46 | DX: R51.9 Headache, unspecified (principal); R50.9 Fever, unspecified; R53.1 Weakness | CPT/HCPCS: A0425; A0429 ==

== ENCOUNTER 2024-03-11 14:58 | Emergency (ER) | payer MEDICARE ==
[2024-03-11 15:41] LABS: BASOPHILS % (AUTO) 0.6 %; EOSINOPHILS % (AUTO) 0.1 %; HCT - HEMATOCRIT 37.9 % (37.0-47.0); HGB - HEMOGLOBIN 12.1 g/dL (12.0-16.0); LYMPHOCYTES % (AUTO) 16.4 %; MEAN CORPUSCULAR HEMOGLOBIN 29.8 pg (27.0-31.0); MEAN CORPUSCULAR HGB CONC 31.9 g/dL (32.0-36.0); MEAN CORPUSCULAR VOLUME 93.3 fL (81.0-99.0); MONOCYTES % (AUTO) 15.7 %; NEUTROPHILS % (AUTO) 66.7 %; PLT - PLATELET COUNT 208 10^3/uL (130-450); RED BLOOD COUNT 4.06 10^6/uL (4.20-5.40); RED CELL DISTRIBUTION WIDTH 14.8 % (12.0-15.0); WHITE BLOOD COUNT 12.1 x10^3/uL (4.8-10.8)
[2024-03-11 15:55] LABS: ALBUMIN 4.2 g/dL (3.2-5.5); ALBUMIN/GLOBULIN RATIO 1.1 (1.0-2.2); CALCIUM 9.9 mg/dL (8.5-10.3); CREATININE 0.7 mg/dL (0.6-1.3); MAGNESIUM 1.7 mg/dL (1.7-2.3); POTASSIUM 3.9 mmol/L (3.5-4.5); TOTAL PROTEIN 7.9 g/dL (6.4-8.9)
[2024-03-11 16:15] LABS: ABNORMAL LYMPHS % (MANUAL) 3 %; BAND NEUTROPHILS % (MANUAL) 10 %; BASOPHILS # (MANUAL) 0.1 10^3/uL (0-0.1); BASOPHILS % (MANUAL) 1 %; LYMPHOCYTES # (MANUAL) 2.7 10^3/uL (1.5-3.5); LYMPHOCYTES % (MANUAL) 19 %; MONOCYTES # (MANUAL) 1.8 10^3/uL (0.0-1.0); NEUTROPHILS # (MANUAL) 7.5 10^3/uL (1.5-6.6)
[2024-03-11 16:16] LABS: TROPONIN I HIGH SENSITIVITY 36.1 ng/L (2.3-14.8)
[2024-03-11 16:17] LABS: DIFFERENTIAL COMMENT MANUAL DIFFERENTIAL; PLATELET ESTIMATE, MANUAL NORMAL (130-450,000) (NORMAL); PLATELET MORPHOLOGY 1+ LARGE PLATELETS (NORMAL); RBC MORPHOLOGY (MULTIPLE) NORMAL APPEARANCE (NORMAL); WBC MORPHOLOGY (MULTIPLE) PELGER HUET ANOMALY (NORMAL)
--- NOTE | 2024-03-11 16:37 | XRAY Report ---
PROCEDURE: Chest 1V INDICATIONS: cough, weakness TECHNIQUE: One view of the chest was acquired. COMPARISON: None. FINDINGS: Surgical changes and devices: The left chest wall cardiac device shows right atrial and ventricular leads in place. Lungs and pleura: No pleural effusions or pneumothorax. Lungs are clear. Mediastinum: Mediastinal contours appear normal. Heart size is normal. Bones and chest wall: No suspicious bony lesions. Overlying soft tissues appear unremarkable. IMPRESSION: No acute cardiopulmonary process. Reviewed by: Cnidi Polo MD on 03/11/2024 3:35 PM AKDT Approved by: Cindi Polo MD on 03/11/2024 3:35 PM AKDT Station ID: [id number]
[2024-03-11 16:38] LABS: BILIRUBIN,URINE NEGATIVE (NEGATIVE); GLUCOSE, URINE (UA) NEGATIVE (NEGATIVE); KETONES,URINE (UA) 15 mg/dL (NEGATIVE); LEUKOCYTE ESTERASE, URINE NEGATIVE (NEGATIVE); NITRITE,URINE NEGATIVE (NEGATIVE); OCCULT BLOOD,URINE NEGATIVE (NEGATIVE); PROTEIN,URINE TRACE mg/dL (NEGATIVE); UROBILINOGEN,URINE 1 (NORMAL) E.U./dL (NORMAL)
[2024-03-11 16:39] LABS: CLARITY,URINE CLEAR (CLEAR)
[2024-03-11 16:44] LABS: CORONAVIRUS 229E-RESP PCR NOT DETECTED; CORONAVIRUS HKU1-RESP PCR NOT DETECTED; CORONAVIRUS NL63-RESP PCR NOT DETECTED; CORONAVIRUS OC43-RESP PCR NOT DETECTED
[2024-03-11 16:45] LABS: B. PARAPERTUSSIS- RESP PCR PAN NOT DETECTED; B. PERTUSSIS- RESP PCR PANEL NOT DETECTED; C. PNEUMONIAE- RESP PCR PANEL NOT DETECTED; HUMAN METAPNEUMOVIRUS NOT DETECTED; INFLUENZA A- RESP PCR PANEL NOT DETECTED; INFLUENZA B - RESP PCR PANEL NOT DETECTED; M. PNEUMONIAE- RESP PCR PANEL NOT DETECTED; PARAINFLUENZA VIRUS 1 NOT DETECTED; PARAINFLUENZA VIRUS 2 NOT DETECTED; PARAINFLUENZA VIRUS 3 NOT DETECTED; PARAINFLUENZA VIRUS 4 NOT DETECTED; RHINOVIRUS/ENTEROVIRUS NOT DETECTED; RSV- RESP PCR PANEL NOT DETECTED; SARS-CoV-2 -RESP PCR PANEL DETECTED
--- NOTE | 2024-03-11 17:17 | CT Report ---
PROCEDURE: Head WO INDICATIONS: headaches, recurrent falls TECHNIQUE: Noncontrast 4.5 mm thick angled axial sections acquired from the foramen magnum to the vertex. For r adiation dose reduction, the following was used: automated exposure control, adjustment of mA and/or kV according to patient size. COMPARISON: 04/30/2022. FINDINGS: Image quality: Diagnostic. CSF spaces: Basal cisterns are patent. No extra-axial fluid collections. Ventricles are normal in size and shape. Brain: No midline shift. No intracranial masses or hemorrhage. No mass effect. Leung-white matter i nterface is normal. There cerebral volume loss for age with resultant ventricular and sulcal prominen ce. There are periventricular and deep white matter chronic small vessel ischemic changes. Atheroscle rotic calcifications are noted in the intracranial segments of the bilateral internal carotid arterie s. Skull and face: Calvarium and visualized facial bones are intact, without suspicious lesions. Sinuses: There is complete opacification of the left maxillary sinus. Moderate scattered ethmoid sinu s mucosal thickening. Near-complete opacification of left frontal sinuses. Mild mucosal thickening of the right maxillary sinus. Mastoid air cells are clear. IMPRESSION: No acute intracranial pathology. Pansinusitis, new compared to the prior study with complete opacification of left frontal and left ma xillary sinuses. Reviewed by: Arnel Cleveland MD on 03/11/2024 5:16 PM PDT Approved by: Arnel Cleveland MD on 03/11/2024 5:16 PM PDT Station ID: [id number]
--- NOTE | 2024-03-11 17:22 | ED Physician Documentation ---
History of Present Illness - Stated complaint Stated Complaint: GEN WEAKNESS - Chief complaint Chief Complaint: General - Additonal information Additional information: Patient is an 88-year-old female presenting to the emergency department with 2 falls at home. Patient was too weak to get out of bed was assisting her. She has significant past medical history of LVH with history of pacemaker in place and history of CHF. Patient presents to the emergency department with EMS after a fall at home and unable to get back up with the help of her . Patient has chronic dementia she is ANO x 2 at her baseline today.Patient is not on any blood thinners at this time.Patient has had persistent cough shortness of breath as well with her symptoms. She denies any pain at this time and appears in no acute distress. PD PAST MEDICAL HISTORY - Past Medical History Past Medical History: Yes Cardiovascular: Coronary artery disease Respiratory: Asthma Endocrine/Autoimmune: HyPOthyroidism : Retention HEENT: None Musculoskeletal: Fatigue - Past Surgical History Past Surgical History: Yes General: Cholecystectomy, Appendectomy, Splenectomy /MILK [employer]ULER: Hysterectomy Cardiovascular: Pacemaker - Present Medications Home Medications: Ambulatory Orders Medication Instructions Recorded Confirmed Albuterol Sulf [Ventolin Hfa 1 - 2 puffs INH Q4HR PRN 08/11/16 03/11/24 Inhaler] Azelastine HCl 137 mcg NS DAILY 08/11/16 03/11/24 Famotidine [Pepcid] 20 mg PO DAILY 08/11/16 08/11/16 Fluticasone/Salmeterol 500/50 1 puffs INH BID 08/11/16 03/11/24 [Advair 500 Mcg/50 Mcg] Levothyroxine Sodium [Synthroid] 100 mcg PO DAILY 08/11/16 03/11/24 Rosuvastatin [Crestor] 10 mg PO DAILY 08/11/16 03/11/24 Potassium Chloride [K-Dur] 20 meq PO DAILY #30 tablet 04/20/22 03/11/24 Gabapentin [Neurontin] 300 mg PO TID 03/11/24 03/11/24 Memantine [Namenda] 5 mg PO DAILY 03/11/24 03/11/24 Memantine [Namenda] 10 mg PO HS 03/11/24 03/11/24 Metoprolol Succinate [Toprol Xl] 25 mg PO DAILY 03/11/24 03/11/24 Sertraline HCl 100 mg PO DAILY 03/11/24 03/11/24 Valsartan [Diovan] 80 mg PO DAILY 03/11/24 03/11/24 - Allergies Allergies/Adverse Reactions: Allergies Allergy/AdvReac Type Severity Reaction Status Date / Time codeine [Codeine] Allergy Unknown unknown Verified 03/11/24 15:07 ciprofloxacin [From Cipro] Allergy Unknown Verified 03/11/24 15:07 ciprofloxacin HCl * Allergy Unknown Verified 03/11/24 15:07 [From Cipro] cyanocobalamin (vitamin B12) Allergy Unknown Verified 03/11/24 15:07 iodine Allergy Unknown Verified 03/11/24 15:07 - Social History Does the pt smoke?: No Smoking Status: Never smoker PD ED PE NORMAL - Vitals Vital signs reviewed: Yes - General General: Other (Patient at baseline ANO x 2 no acute distress she denies any symptoms at this time) - HEENT HEENT: Atraumatic - Neck Neck: Supple, no meningeal sign - Cardiac Cardiac: RRR, No murmur, No gallop, No rub, Strong equal pulses - Respiratory Respiratory: No respiratory distress, Clear bilaterally - Abdomen Abdomen: Normal bowel sounds, Non tender, Non distended - Female Female : Deferred - Rectal Rectal: Deferred - Back Back: No CVA TTP, No spinal TTP - Derm Derm: Normal color, No rash - Extremities Extremities: No deformity, Other (No pain on palpation of upper and lower extremities.) - Neuro Neuro: Other (Patient ANO x 2 this appears to be her baseline. No obvious motor deficits she has strength intact in upper and lower extremities. She has normal speech no slurring of words no abnormal sensory deficit noted.) Motor: Obeys Commands Verbal: Oriented Results - Vitals Vitals: Vital Signs - 24 hr 03/11/24 03/11/24 03/11/24 15:07 15:48 17:52 Temperature 37.7 C 37.2 C Heart Rate 84 93 61 Respiratory 16 20 18 Rate Blood Pressure 127/64 129/59 L 146/60 H O2 Saturation 96 93 96 03/11/24 19:00 Temperature Heart Rate 76 Respiratory 26 H Rate Blood Pressure 130/77 O2 Saturation 95 Oxygen O2 Source Room air - EKG (time done) 1531 EKG releavant findings:: EKG personally interpreted by author of this note. Relevant findings are: Rhythm: NSR [place]: Normal Intervals: Normal NC QRS: Normal Ischemia: T wave inversion, Other Compare to prior EKG: Changed from prior EKG (No previous ST depression on previous EKG did show ventricular paced complexes with ST elevation secondary to LVH.) - Labs Labs: Laboratory Tests 03/11/24 03/11/24 03/11/24 15:25 15:37 15:37 WBC 12.1 H RBC 4.06 L Hgb 12.1 Hct 37.9 MCV 93.3 MCH 29.8 MCHC 31.9 L RDW 14.8 Plt Count 208 MPV 10.0 Neut # (Auto) Not Reportable Lymph # (Auto) Not Reportable [place] # (Auto) Not Reportable Eos # (Auto) Not Reportable Baso # (Auto) Not Reportable Absolute Nucleated RBC Not Reportable Total Counted 100 Band Neuts % (Manual) 10 Abnorm Lymph % (Manual) 3 Nucleated RBC % Not Reportable Neutrophils # (Manual) 7.5 H Lymphocytes # (Manual) 2.7 Monocytes # (Manual) 1.8 H Eosinophils # (Manual) 0.0 Basophils # (Manual) 0.1 Differential Comment MANUAL DIFFERENTIAL WBC Morphology PELGER HUET ANOMALY Platelet Estimate NORMAL (130-450,000) Platelet Morphology 1+ LARGE PLATELETS RBC Morph Micro Appear NORMAL APPEARANCE PT INR Sodium 137 Potassium 3.9 Chloride 104 Carbon Dioxide 25 Anion Gap 8.0 BUN 17 Creatinine 0.7 Estimated GFR (MDRD) 79 L Glucose 109 H Calcium 9.9 Magnesium 1.7 Total Bilirubin 1.0 AST 21 ALT 11 Alkaline Phosphatase 56 Total Creatine Kinase 44 Troponin I High Sens 36.1 H* Total Protein 7.9 Albumin 4.2 Globulin 3.7 Albumin/Globulin Ratio 1.1 Urine Color Urine Clarity Urine pH Ur Specific [place] Urine Protein Urine Glucose (UA) Urine Ketones Urine Occult Blood Urine Nitrite Urine Bilirubin Urine Urobilinogen Ur Leukocyte Esterase Ur Microscopic Review Urine Culture Comments Nasal Adenovirus (PCR) NOT DETECTED Nasal B. parapertussis DNA (PCR) NOT DETECTED Nasal Coronavir 229E PCR NOT DETECTED Nasal Coronavir HKU1 PCR NOT DETECTED Nasal Coronavir NL63 PCR NOT DETECTED Nasal Coronavir OC43 PCR NOT DETECTED Nasal Enterovir/Rhinovir PCR NOT DETECTED Nasal Influenza B PCR NOT DETECTED Nasal Influenza A PCR NOT DETECTED Nasal Parainfluen 1 PCR NOT DETECTED Nasal Parainfluen 2 PCR NOT DETECTED Nasal Parainfluen 3 PCR NOT DETECTED Nasal Parainfluen 4 PCR NOT DETECTED Nasal RSV (PCR) NOT DETECTED Nasal B.pertussis DNA PCR NOT DETECTED Nasal C.pneumoniae (PCR) NOT DETECTED Romaine Human Metapneumo PCR NOT DETECTED Nasal M.pneumoniae (PCR) NOT DETECTED Nasal SARS-CoV-2 (PCR) DETECTED A 03/11/24 03/11/24 03/11/24 16:30 17:46 19:11 WBC RBC Hgb Hct MCV MCH MCHC RDW Plt Count MPV Neut # (Auto) Lymph # (Auto) [place] # (Auto) Eos # (Auto) Baso # (Auto) Absolute Nucleated RBC Total Counted Band Neuts % (Manual) Abnorm Lymph % (Manual) Nucleated RBC % Neutrophils # (Manual) Lymphocytes # (Manual) Monocytes # (Manual) Eosinophils # (Manual) Basophils # (Manual) Differential Comment WBC Morphology Platelet Estimate Platelet Morphology RBC Morph Micro Appear PT 13.3 H INR 1.2 Sodium Potassium Chloride Carbon Dioxide Anion Gap BUN Creatinine Estimated GFR (MDRD) Glucose Calcium Magnesium Total Bilirubin AST ALT Alkaline Phosphatase Total Creatine Kinase Troponin I High Sens 54.1 H* Total Protein Albumin Globulin Albumin/Globulin Ratio Urine Color YELLOW Urine Clarity CLEAR Urine pH 6.0 Ur Specific [place] >=1.030 H Urine Protein TRACE Urine Glucose (UA) NEGATIVE Urine Ketones 15 H Urine Occult Blood NEGATIVE Urine Nitrite NEGATIVE Urine Bilirubin NEGATIVE Urine Urobilinogen 1 (NORMAL) Ur Leukocyte Esterase NEGATIVE Ur Microscopic Review NOT INDICATED Urine Culture Comments NOT INDICATED Nasal Adenovirus (PCR) Nasal B. parapertussis DNA (PCR) Nasal Coronavir 229E PCR Nasal Coronavir HKU1 PCR Nasal Coronavir NL63 PCR Nasal Coronavir OC43 PCR Nasal Enterovir/Rhinovir PCR Nasal Influenza B PCR Nasal Influenza A PCR Nasal Parainfluen 1 PCR Nasal Parainfluen 2 PCR Nasal Parainfluen 3 PCR Nasal Parainfluen 4 PCR Nasal RSV (PCR) Nasal B.pertussis DNA PCR Nasal C.pneumoniae (PCR) Romaine Human Metapneumo PCR Nasal M.pneumoniae (PCR) Nasal SARS-CoV-2 (PCR) PD Medical Decision Making - ED course Complexity details: reviewed old records, reviewed results, re-evaluated patient ED course: Patient is an 88-year-old female presenting to the emergency department with weakness at home. Patient had persistent cough and 2 falls with most recent 1 this morning out of bed today when trying to go to the bathroom. Patient is under the care of her who has signed POA paperwork according to her here in the emergency department. She has a past medical history remarkable for history of atrial fibrillation not currently on blood thinners as she has a history of recurrent falls. She denies any pain today no injuries from her falls. She is ANO x 2 which appears to be her baseline. She is able to follow commands and is in no acute distress. does note recurrent cough over the last few days and he has concerns for possible COVID. Vitals on arrival are stable patient is normotensive afebrile nontachycardic. Initial EKG was obtained showing atrial fibrillation with diffuse T wave inversions compared to previous EKG back in 2021. Patient does have pacemaker in place chest x-ray shows no signs of pneumonia. Patient does have mild leukocytosis. She did have positive COVID test here in the emergency department this could explain patient's mild leukocytosis. Troponin here in the emergency department is elevated in the 20s. Will repeat troponin could be secondary to demand ischemia given patient's recent COVID diagnosis.CT scan of the head in the meantime shows no acute intracranial abnormalities. Repeat troponin at 2-hour benjamin does show elevation in troponin and 20 point increase with high-sensitivity troponin. Patient also has repeat EKG showing worsening ST depressions in lateral leads. Discussed at length with patient has history of dementia she is currently under palliative care at this time he has reported that he has signed paperwork and does make decisions regarding patient's medical care. He would like patient to be transferred to the hospital with a quality audit representative for further intervention he understands risks of these interventions and understands patient is on palliative care. Discussed case with [facility] hospitalist as quality audit representative reviewed patient's workup independently and accepted patient. Dr. Sandoval was the quality audit representative. Discussed case with on-call hospitalist Dr. Boston who accepted patient. Patient will be transferred he was agreeable with starting heparin at this time. Discussed case with patient and he is agreeable with plan patient has no history of GI bleeds. CT scan of head showed no acute intracranial bleeding. Patient will be transferred on heparin drip. Departure - Departure Disposition: 02 Transfer Acute Care Hosp Clinical Impression: NSTEMI (non-ST elevated myocardial infarction), Elevated troponin I level, ST segment changes on electrocardiogram Forms: PCP List
[2024-03-11] MEDS: ASPIRIN 325 MG TABLET PO STA (19:25)
[2024-03-11 19:35] LABS: INR 1.2 (0.8-1.2); PT - PROTHROMBIN TIME 13.3 secs (9.9-12.6)
[2024-03-11] MEDS: HEPARIN 25000UNITS/500ML (D5W) 25,000 UNIT/500 ML BAG IV SCH (21:03)
[2024-03-11] MEDS: HALOPERIDOL 5 MG/ML VIAL IVP STA (23:16)
[2024-03-11 23:29] VITALS: O2SAT 95
--- NOTE | 2024-03-11 23:44 | ED Physician Documentation ---
ED Addendum - Addendum Addendum: 03/11/24 23:43 Patient HD stable in ED bed. Did remove IV multiple times, subsequently replaced by ED nursing staff. Small amount of haldol given for anxiolysis during transport. Taken by [facility] ambulance service in stable condition.
[2024-03-12 00:12] VITALS: BP 145/49
== END 2024-03-11 23:25 | disposition short-term general hospital (02) ==
LOC: EDUNIT# → ED 14:58
DX: I21.4 Non-ST elevation (NSTEMI) myocardial infarction (principal); R79.89 Other specified abnormal findings of blood chemistry; I25.10 Atherosclerotic heart disease of native coronary artery without angina pectoris; E03.9 Hypothyroidism, unspecified; I50.9 Heart failure, unspecified; F03.90 Unspecified dementia, unspecified severity, without behavioral disturbance, psychotic disturbance, mood disturbance, and anxiety; Z95.0 Presence of cardiac pacemaker; R29.6 Repeated falls; Z91.81 History of falling; Z79.899 Other long term (current) drug therapy; Z79.51 Long term (current) use of inhaled steroids
CPT/HCPCS: 36415; 70450; 71045; 80053; 81003; 82550; 83735; 84484; 85025; 85610; 85730; 87633; 93005; 96374; 96375; 99285; A9270; 81001; 87086

== ENCOUNTER 2024-03-30 08:00 | Outpatient (CLI) | payer MEDICARE | END 2024-03-30 23:59 | disposition home or self-care (01) | LOC: PC 08:00 | PROVIDERS: ATTEND Nurse Practitioner Gerontology | DX: Z51.5 Encounter for palliative care (principal); F01.C4 Vascular dementia, severe, with anxiety; R05.1 Acute cough; I21.4 Non-ST elevation (NSTEMI) myocardial infarction; D68.51 Activated protein C resistance; Z79.899 Other long term (current) drug therapy; Z79.82 Long term (current) use of aspirin; Z71.89 Other specified counseling; Z74.8 Other problems related to care provider dependency; Z86.16 Personal history of COVID-19 | CPT/HCPCS: 99349 ==